=== PATIENT | male | born 1965 | race Caucasian/White ===

== ENCOUNTER 2017-06-29 05:55 | Day surgery (SDC) | payer OTHER ==
[2017-06-29] MEDS ORDERED: Ketamine HCl 50 MG/ML IJ ONE (05:56)
[2017-06-29] MEDS ORDERED: DIPRIVAN 200 MG/20 ML IV ONE (05:56)
[2017-06-29] MEDS ORDERED: Lactated Ringers 1,000 ML IV SCH (06:00)
--- NOTE | 2017-06-29 08:03 | OP ---
SURGERY DATE/TIME: 06/29/2017 0700 PREOPERATIVE DIAGNOSIS: Screening colonoscopy. POSTOPERATIVE DIAGNOSIS: Normal colon. PROCEDURE: Screening colonoscopy. SURGEON: Nicanor Galvan M.D. ANESTHESIA: MAC by Vinay Bowser CRNA. ESTIMATED BLOOD LOSS: None. SPECIMENS: None. DESCRIPTION OF PROCEDURE: After informed written consent was obtained, the patient was taken to the endoscopy suite. He underwent monitored anesthesia and a digital rectal exam showed normal sphincter tone and no internal lesions. The scope was inserted into the rectum and sequentially the entire colonic mucosa was traversed. The level of cecum was reached and verified with direct visualization of ileocecal valve. Upon withdrawal careful mucosal inspection revealed no gross abnormalities or lesions. Prior to withdrawal retroflexion was performed and was within normal limits. There was some fecal debris in the proximal colon but prep was noted to be fair throughout the length. Retroflexion showed no internal lesions and the scope was removed and the patient was transferred to the recovery room in excellent condition.
[2017-06-29 08:29] VITALS: BP 133/84; PULSE 72; O2SAT 100
== END 2017-06-29 08:25 | disposition home or self-care (01) ==
LOC: SDC 05:55
PROVIDERS: ATTEND Family Medicine
PROC: 0DJD8ZZ Inspection of Lower Intestinal Tract, Via Natural or Artificial Opening Endoscopic (ICD-10-PCS; principal; 2017-06-29)
DX: Z12.11 Encounter for screening for malignant neoplasm of colon (principal)
CPT/HCPCS: 00812; J2704

== ENCOUNTER 2020-11-26 15:22 | Day surgery (SDC) | payer OTHER ==
[2020-11-26] MEDS ORDERED: BUPIVACAINE 0.5% VIAL IJ ONE (15:23)
[2020-11-26] MEDS ORDERED: Xylocaine 1% Vial 30 ML PF IJ ONE (15:23)
[2020-11-26] MEDS ORDERED: Depo-Medrol 40 MG/ML IM ONE (15:23)
--- NOTE | 2020-11-27 11:35 | XRAY ---
10 seconds fluoroscopy time in surgery for intra-articular injection of the right knee.
--- NOTE | 2020-11-27 11:45 | XRAY ---
17 seconds fluoroscopy time in surgery for intra-articular injection of the left knee.
--- NOTE | 2020-11-30 18:08 | XRAY ---
Indication: Intra-articular right knee injection. Intraoperative fluoroscopy was provided for 10 seconds. A single digital spot image submitted for interpretation demonstrates a needle tip projected over the right femur intercondylar notch. A small amount of contrast has been injected for needle tip placement. Correlate with intraoperative findings/report.
--- NOTE | 2020-11-30 18:10 | XRAY ---
Indication: Intra-articular left knee joint injection. Intraoperative fluoroscopy was provided for 17 seconds. 2 digital spot images submitted for interpretation demonstrates a needle tip projected over the left femur intercondylar notch. Some contrast has been injected for needle tip placement. Correlate with intraoperative findings/report.
== END 2020-11-26 17:35 | disposition home or self-care (01) ==
LOC: SDC-PAIN 15:22
PROVIDERS: ATTEND Psychiatry & Neurology Pain Medicine
DX: M17.0 Bilateral primary osteoarthritis of knee (principal); J45.909 Unspecified asthma, uncomplicated; K21.9 Gastro-esophageal reflux disease without esophagitis; Z79.899 Other long term (current) drug therapy
CPT/HCPCS: 20610; 73560; 77002; J1030; J2001; Q9966

== ENCOUNTER 2021-07-08 10:04 | Day surgery (SDC) | payer OTHER ==
[2021-07-08] MEDS ORDERED: Xylocaine 1% Vial 30 ML PF IJ ONE (10:05)
[2021-07-08] MEDS ORDERED: BUPIVACAINE 0.5% VIAL IJ ONE (10:05)
[2021-07-08] MEDS ORDERED: Depo-Medrol 40 MG/ML IM ONE (10:05)
--- NOTE | 2021-07-08 13:57 | XRAY ---
Indication: Left knee injection. Intraoperative fluoroscopy provided for 8 seconds. Single digital spot image submitted for interpretation demonstrates needle tip projecting over the left femur intercondylar notch. Small amount of contrast injected for needle tip placement. Correlate with intraoperative findings/report.
--- NOTE | 2021-07-08 13:57 | XRAY ---
Indication: Right knee injection. Intraoperative fluoroscopy provided for 9 seconds. Single digital spot image submitted for interpretation demonstrates needle tip projecting over the right femur intercondylar notch. Small amount of contrast injected for needle tip placement. Correlate with intraoperative findings/report.
--- NOTE | 2021-07-08 13:59 | XRAY ---
8 seconds fluoroscopy time in surgery for injection of the intra-articular joint space of the left knee.
--- NOTE | 2021-07-08 14:09 | XRAY ---
9 seconds fluoroscopy time in surgery for injection of the intra-articular joint space of the right knee.
== END 2021-07-08 13:20 | disposition home or self-care (01) ==
LOC: SDC-PAIN 10:04
PROVIDERS: ATTEND Psychiatry & Neurology Pain Medicine
DX: M17.0 Bilateral primary osteoarthritis of knee (principal); Z79.899 Other long term (current) drug therapy
CPT/HCPCS: 20610; 73560; 77002; J1030; J2001; Q9966

== ENCOUNTER 2022-06-16 15:46 | Day surgery (SDC) | payer OTHER ==
[2022-06-16] MEDS ORDERED: Depo-Medrol 40 MG/ML IM ONE (15:47)
[2022-06-16] MEDS ORDERED: LIDOCAINE HCL 1% 50 MG/5 ML VL PF IJ ONE (15:47)
[2022-06-16] MEDS ORDERED: BUPIVACAINE 0.5% VIAL IJ ONE (15:47)
--- NOTE | 2022-06-16 19:27 | XRAY ---
Indication: Right knee injection. Intraoperative fluoroscopy provided for 10 seconds. Single digital spot image submitted for interpretation demonstrates needle tip projecting over the right femur intercondylar notch. Small amount of contrast injected for needle tip placement. Correlate with intraoperative findings/report.
--- NOTE | 2022-06-17 08:33 | XRAY ---
10 seconds of fluoroscopy was used in surgery for a right intra-articular knee injection.
== END 2022-06-16 18:45 | disposition home or self-care (01) ==
LOC: SDC-PAIN 15:46
PROVIDERS: ATTEND Psychiatry & Neurology Pain Medicine
DX: M17.11 Unilateral primary osteoarthritis, right knee (principal); Z79.899 Other long term (current) drug therapy
CPT/HCPCS: 20610; 73560; 77002; J1030; J2001; Q9966

== ENCOUNTER 2024-01-13 10:27 | Emergency (ER) | payer OTHER ==
--- NOTE | 2024-01-13 10:33 | ERPHSYRPT ---
- History of Present Illness Time Seen by Provider: 01/13/24 10:33 Source: patient Exam Limitations: clinical condition Physician History: This is a 58-year-old white male patient who arrives by private vehicle and is a patient of nurse practitioner Howie. He presents because of concern that he has had dizziness, loss of balance, visual changes and forgetfulness/memory loss over the last week. Patient does see pain specialist Dr. Will. He has some issues with the left upper extremity shoulder muscles/tendons. Patient denies any head injury. He is not on any anticoagulation therapy. Patient has a history of gastroesophageal reflux disease, asthma and arthritis. He denies chest pain. He denies shortness of breath. He denies abdominal pain Timing/Duration: week(s) (1), worse Severity: mild (Moderate) Character of Deficits: vision problems, other (Balance issues, memory loss) Baseline/Normal Cognition: alert oriented x 3 Current Cognition: alert oriented x 3 Baseline Gait: walks w/o assistance Associated Symptoms: confusion (Minimally), vision changes (Minimally), other (Intermittent decreased balance) Allergies/Adverse Reactions: No Known Drug Allergies Allergy (Verified 01/13/24 11:25) Home Medications: Omeprazole 20 MG [Prilosec 20 mg] 20 mg PO DAILY 06/10/17 [History] Oxycodone HCl/Acetaminophen [Oxycodone-Acetaminophen 5-325] 1 tab PO TID 01/13/24 [History] Travel Risk - International Travel Have you traveled outside of the country in past 3 weeks: No - Emerging Infectious Disease Are you exhibiting symptoms associated with any current EIDs: No - Review of Systems Constitutional: No Symptoms Eyes: No Symptoms Ears, Nose, & Throat: No Symptoms Respiratory: No Symptoms Cardiac: No Symptoms Abdominal/Gastrointestinal: No Symptoms Genitourinary Symptoms: No Symptoms Musculoskeletal: No Symptoms Skin: No Symptoms Neurological: No Symptoms Psychological: No Symptoms Endocrine: No Symptoms Hematologic/Lymphatic: No Symptoms Immunological/Allergic: No Symptoms All Other Systems: Reviewed and Negative - Past Medical History Pertinent Past Medical History: Yes Neurological History: No Pertinent History ENT History: No Pertinent History Cardiac History: No Pertinent History Respiratory History: Asthma Endocrine Medical History: No Pertinent History Musculoskeletal History: Other GI Medical History: GERD History: No Pertinent History Psycho-Social History: No Pertinent History Male Reproductive Disorders: No Pertinent History Other Medical History: B torn meniscus, L rotator cuff tear (non-surgical), R middle finger distal phalanx severed and surgically repaired - Past Surgical History Past Surgical History: No Neuro Surgical History: No Pertinent History Cardiac: No Pertinent History Respiratory: No Pertinent History Gastrointestinal: No Pertinent History Genitourinary: No Pertinent History Musculoskeletal: No Pertinent History Male Surgical History: No Pertinent History - Social History Smoking Status: Never smoker Exposure to second hand smoke: No Drug Use: none - Nursing Vital Signs Nursing Vital Signs: Initial Vital Signs Temperature 98.4 F 01/13/24 11:25 Pulse Rate 63 01/13/24 11:25 Respiratory Rate 18 01/13/24 11:25 Blood Pressure 187/96 01/13/24 11:25 O2 Sat by Pulse Oximetry 99 01/13/24 11:25 Pain Scale Pain Intensity 0 - [place] Coma Scale Best Eye Response ([place]): (4) open spontaneously Best Verbal Response ([place]): (5) oriented Best Motor Response ([place]): (6) obeys commands [place] Total: 15 - Physical Exam General Appearance: no apparent distress, alert, anxiety Eye Exam: bilateral eye: normal inspection, PERRL, EOMI Ears, Nose, Throat Exam: normal ENT inspection, TMs normal, pharynx normal Neck Exam: normal inspection, non-tender, supple, full range of motion Respiratory: normal breath sounds, lungs clear, airway intact, No chest tendern ess, No respiratory distress Cardiovascular: regular rate/rhythm, normal heart sounds, normal peripheral pulses Gastrointestinal: soft, normal bowel sounds, No tenderness Rectal Exam: not done Back Exam: normal inspection, normal range of motion, No CVA tenderness, No vertebral tenderness Extremity Exam: normal inspection, normal range of motion, pelvis stable Mental Status: alert, oriented x 3, 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 Exam: normal hearing, normal speech, PERRL, tongue midline Coordination/Gait: normal finger to nose, normal gait Motor/Sensory: no motor deficit, no sensory deficit Skin Exam: normal color, warm, dry SpO2 Interpretation: normal O2 Delivery: Room Air - Course Nursing assessment & vital signs reviewed: Yes Ordered Tests: Active Orders 24 hr Category Date Time Status Powerhouse Attendant STAT Care 01/13/24 12:15 Active Clean Catch Urine Specimen STAT Care 01/13/24 12:15 Active EKG-ER Only STAT Care 01/13/24 12:15 Active IV Insertion STAT Care 01/13/24 12:15 Active Tele-Health Consult ROUTINE Cons 01/13/24 15:[address] ANGIOGRAPHY NECK [CT] Stat Exams 01/13/24 12:17 Completed CTA HEAD W AND/OR WO CONTRAST [CT] Stat Exams 01/13/24 12:17 Completed CBC W DIFF Stat Lab 01/13/24 12:25 Completed CMP Stat Lab 01/13/24 12:25 Completed ETHYL ALCOHOL Stat Lab 01/13/24 12:25 Completed MAGNESIUM Stat Lab 01/13/24 12:25 Completed UA W/RFX UR CULTURE Stat Lab 01/13/24 12:28 Completed Urine Triage Profile Stat Lab 01/13/24 12:28 Results Medication Summary Generic Name Dose Route Start Last Admin Trade Name Freq PRN Reason Stop Dose Admin Sodium Chloride 1,000 mls @ 100 mls/hr 01/13/24 12:15 01/13/24 12:31 Sodium Chloride 0.9% 1000 Ml IV 02/12/24 12:14 100 mls/hr .Q10H ALIDA Administration Discontinued Medications Generic Name Dose Route Start Last Admin Trade Name Freq PRN Reason Stop Dose Admin Potassium Chloride 40 meq 01/13/24 13:01 01/13/24 13:06 Potassium Chloride Tab 10 Meq Tab PO 01/13/24 13:02 40 meq STAT ONE Administration Potassium Chloride Confirm 01/13/24 13:04 Potassium Chloride Tab 10 Meq Tab Administered 01/13/24 13:05 Dose 40 meq .ROUTE .STK-MED ONE Lab/Rad Data: Laboratory Result Diagrams 01/13/24 12:25 01/13/24 12:25 Laboratory Results 01/13/24 01/13/24 01/13/24 Range/Units 12:28 12:28 12:25 WBC (4.23-9.07) x10^3/uL RBC (4.63-6.08) x10^6/uL Hgb (13.7-17.5) g/dL Hct (40.1-51.0) % MCV (79.0-92.2) fL MCH (25.7-32.2) pg MCHC (32.3-36.5) g/dL RDW (11.6-14.4) % Plt Count (163-337) x10^3/uL MPV (9.4-12.4) fL Gran % (34.0-67.9) % Immature Gran % (Auto) (0.001-0.429) % Nucleat RBC Rel Count (0.00-0.2) % Eos # (Auto) (0.04-0.54) x10^3/uL Immature Gran # (Auto) (0.001-0.031) x10^3u/L Absolute Lymphs (auto) (1.32-3.57) x10^3/uL Absolute Monos (auto) (0.30-0.82) x10^3/uL Absolute Nucleated RBC (0.00-0.012) x10^3u/L Lymphocytes % (21.8-53.1) % Monocytes % (5.3-12.2) % Eosinophils % (0.8-7.0) % Basophils % (0.2-1.2) % Absolute Granulocytes (1.78-5.38) x10^3/uL Basophils # (0.01-0.08) x10^3/uL Sodium 139 (135-145) mmol/L Potassium 3.0 L* (3.5-5.1) mmol/L Chloride 103 (98-107) mmol/L Carbon Dioxide 31 H (22-30) mmol/L Anion Gap 9.0 (5-15) MEQ/L BUN 10 (9-20) mg/dL Creatinine 0.97 (0.66-1.25) mg/dL Estimated GFR 91.1 ML/MIN Glucose 100 (74-106) mg/dL Calcium 9.7 (8.4-10.2) mg/dL Magnesium 2.0 (1.6-2.3) mg/dL Total Bilirubin 0.30 (0.2-1.3) mg/dL AST 24 (17-59) U/L ALT 16 (0-50) U/L Alkaline Phosphatase 53 (38-126) U/L Serum Total Protein 7.0 (6.3-8.2) g/dL Albumin 4.2 (3.5-5.0) g/dL Urine Color Yellow (Yellow) Urine Appearance Clear (Clear) Urine pH 7.0 (4.6-8.0) Ur Specific [place] <=1.005 (1.005-1.030) Urine Protein Negative (Negative) Urine Glucose (UA) Negative (Negative) mg/dL Urine Ketones Negative (Negative) Urine Blood Negative (Negative) Urine Nitrite Negative (Negative) Urine Bilirubin Negative (Negative) Urine Urobilinogen 0.2 (0.2) mg/dL Ur Leukocyte Esterase Negative (Negative) U Hyaline Cast (Auto) NONE SEEN (0-2) /LPF Urine Microscopic RBC 0-2 (0-5) /HPF Urine Microscopic WBC 0-2 (0-5) /HPF Ur Epithelial Cells None Seen (None Seen) /HPF Urine Bacteria None Seen (None Seen) /HPF Urine Culture Reflexed NO (NO) Urine Opiates Level NEGATIVE (NEGATIVE) Ur Methadone NEGATIVE (NEGATIVE) Urine Barbiturates NEGATIVE (NEGATIVE) Ur Phencyclidine (PCP) NEGATIVE (NEGATIVE) Urine Amphetamine NEGATIVE (NEGATIVE) U Benzodiazepine Level Pending Urine Cocaine NEGATIVE (NEGATIVE) Urine Marijuana (THC) NEGATIVE (NEGATIVE) Ethyl Alcohol < 10 (0-10) mg/dL 01/13/24 Range/Units 12:25 WBC 6.0 (4.23-9.07) x10^3/uL RBC 4.36 L (4.63-6.08) x10^6/uL Hgb 13.1 L (13.7-17.5) g/dL Hct 37.5 L (40.1-51.0) % MCV 86.0 (79.0-92.2) fL MCH 30.0 (25.7-32.2) pg MCHC 34.9 (32.3-36.5) g/dL RDW 12.5 (11.6-14.4) % Plt Count 297 (163-337) x10^3/uL MPV 10.2 (9.4-12.4) fL Gran % 56.3 (34.0-67.9) % Immature Gran % (Auto) 0.3 (0.001-0.429) % Nucleat RBC Rel Count 0.0 (0.00-0.2) % Eos # (Auto) 0.26 (0.04-0.54) x10^3/uL Immature Gran # (Auto) 0.02 (0.001-0.031) x10^3u/L Absolute Lymphs (auto) 1.76 (1.32-3.57) x10^3/uL Absolute Monos (auto) 0.56 (0.30-0.82) x10^3/uL Absolute Nucleated RBC 0.00 (0.00-0.012) x10^3u/L Lymphocytes % 29.4 (21.8-53.1) % Monocytes % 9.4 (5.3-12.2) % Eosinophils % 4.3 (0.8-7.0) % Basophils % 0.3 (0.2-1.2) % Absolute Granulocytes 3.36 (1.78-5.38) x10^3/uL Basophils # 0.02 (0.01-0.08) x10^3/uL Sodium (135-145) mmol/L Potassium (3.5-5.1) mmol/L Chloride (98-107) mmol/L Carbon Dioxide (22-30) mmol/L Anion Gap (5-15) MEQ/L BUN (9-20) mg/dL Creatinine (0.66-1.25) mg/dL Estimated GFR ML/MIN Glucose (74-106) mg/dL Calcium (8.4-10.2) mg/dL Magnesium (1.6-2.3) mg/dL Total Bilirubin (0.2-1.3) mg/dL AST (17-59) U/L ALT (0-50) U/L Alkaline Phosphatase (38-126) U/L Serum Total Protein (6.3-8.2) g/dL Albumin (3.5-5.0) g/dL Urine Color (Yellow) Urine Appearance (Clear) Urine pH (4.6-8.0) Ur Specific [place] (1.005-1.030) Urine Protein (Negative) Urine Glucose (UA) (Negative) mg/dL Urine Ketones (Negative) Urine Blood (Negative) Urine Nitrite (Negative) Urine Bilirubin (Negative) Urine Urobilinogen (0.2) mg/dL Ur Leukocyte Esterase (Negative) U Hyaline Cast (Auto) (0-2) /LPF Urine Microscopic RBC (0-5) /HPF Urine Microscopic WBC (0-5) /HPF Ur Epithelial Cells (None Seen) /HPF Urine Bacteria (None Seen) /HPF Urine Culture Reflexed (NO) Urine Opiates Level (NEGATIVE) Ur Methadone (NEGATIVE) Urine Barbiturates (NEGATIVE) Ur Phencyclidine (PCP) (NEGATIVE) Urine Amphetamine (NEGATIVE) U Benzodiazepine Level Urine Cocaine (NEGATIVE) Urine Marijuana (THC) (NEGATIVE) Ethyl Alcohol (0-10) mg/dL - Progress Progress: unchanged, re-examined Progress Note: 01/13/24 12:25 My medical decision making and the assignment of moderate complexity to this patient's medical issue today is based on review of the patient's past medical history, review of patient's medication list, review of patient drug allergy list, history present illness and physical findings on examination. The workup in this patient includes intravenous line placement, twelve-lead EKG, magnesium level, ethyl alcohol level, urinalysis, urine drug screen, CBC, CMP, CT scan with contrast of the neck and head. Likely, we will need to obtain a teleneurology consultation. Differential diagnosis includes but is not limited to anxiety about health, acute intracranial abnormality, acute cranial vascular abnormality, electrolyte abnormalities, arrhythmias, urinary tract infection 01/13/24 15:11 Interpreted the patient's laboratory data results. The patient's potassium is low but not of an emergent level. We did provide him with oral potassium 40 mEq. The remainder of his laboratory data results are nonemergent and nonacute. CT scan of the head with and without contrast was interpreted by the radiologist and is normal. The CTA of the head was interpreted by the radiologist and is normal. The CTA angiography of the neck was interpreted by the radiologist and I reviewed the impression. The impression states normal CTA of the neck with contrast. There is evidence of C3-C7 degenerative spondylosis. We have placed a call into teleneurology for evaluation and recommendations for management. 01/13/24 15:43 The nurse Chaya reported to me, and the patient confirmed that the teleneurologist recommends that patient have an outpatient MRI of the brain and an EEG ordered. The patient states that he will go to the [facility] on 01/16/2024, at his place of work to have these test ordered. Counseled pt/family regarding: lab results, diagnosis, rad results Medical Desision Making - Risk of complications Low Risk: Low risk of morbidity from additional dx testing or treatment - Departure Departure Disposition: Home Clinical Impression: Visual changes, Balance problem, Dizziness Condition: Stable Critical Care Time: No Referrals: SIDNEY MOLINA NP [Primary Care Provider] - Follow up/PCP as directed Additional Instructions: Per the neurologist, follow-up with your outpatient clinic on 01/16/2024, to make arranges for outpatient MRI of the brain and an EEG. Take all your other medications as prescribed.
[2024-01-13 11:40] VITALS: TEMP 98.4
[2024-01-13 12:30] LABS: Absolute Neutrophil Ct (ANC) 3.36 x10^3/uL (1.78-5.38); BASOPHIL % 0.3 % (0.2-1.2); Basophil (Absolute #) 0.02 x10^3/uL (0.01-0.08); Eosinophil % 4.3 % (0.8-7.0); Eosinophil (Absolute #) 0.26 x10^3/uL (0.04-0.54); Hematocrit 37.5 % (40.1-51.0); Hemoglobin 13.1 g/dL (13.7-17.5); IMMATURE GRAN # 0.02 x10^3u/L (0.001-0.031); IMMATURE GRAN % 0.3 % (0.001-0.429); Lymphocyte (Absolute #) 1.76 x10^3/uL (1.32-3.57); Lymphocytes % 29.4 % (21.8-53.1); Mean Corpuscular Hgb Concent. 34.9 g/dL (32.3-36.5); Mean Platelet Volume 10.2 fL (9.4-12.4); Monocyte (Absolute #) 0.56 x10^3/uL (0.30-0.82); Monocytes % 9.4 % (5.3-12.2); Neutrophil % 56.3 % (34.0-67.9); Platelet Count 297 x10^3/uL (163-337); Red Blood Count 4.36 x10^6/uL (4.63-6.08); Red Cell Distribution Width 12.5 % (11.6-14.4)
[2024-01-13] MEDS ORDERED: Sodium Chloride 0.9% 1000 ML 1,000 ML ONE (12:30)
[2024-01-13] MEDS: Sodium Chloride 0.9% 1000 ML 1,000 ML IV SCH (12:31)
[2024-01-13 12:34] LABS: ADD URINE CULTURE? NO (NO); Appearance Clear (Clear); Bacteria None Seen /HPF (None Seen); Bilirubin Negative (Negative); Blood Negative (Negative); Epithelial Cells None Seen /HPF (None Seen); Glucose, Urine Negative (Negative); Hyaline Casts NONE SEEN /LPF (0-2); Ketones Negative (Negative); Leukocyte Esterase Negative (Negative); Nitrite Negative (Negative); Protein,Urine Dip Negative (Negative); RBC 0-2 /HPF (0-5); Specific Gravity <=1.005 (1.005-1.030); Urobilinogen 0.2 mg/dL (0.2); WBC 0-2 /HPF (0-5)
[2024-01-13 12:46] LABS: Amphetamine,Urine NEGATIVE (NEGATIVE); Barbiturate,Urine NEGATIVE (NEGATIVE); Cocaine,Urine NEGATIVE (NEGATIVE); Methadone,Urine NEGATIVE (NEGATIVE); Opiate,Urine NEGATIVE (NEGATIVE); PCP,Urine NEGATIVE (NEGATIVE); THC,Urine NEGATIVE (NEGATIVE)
[2024-01-13 12:52] LABS: ALBUMIN 4.2 g/dL (3.5-5.0); ALKALINE PHOSPHATASE 53 U/L (38-126); BLOOD UREA NITROGEN 10 mg/dL (9-20); CHLORIDE 103 mmol/L (98-107); Calcium 9.7 mg/dL (8.4-10.2); Carbon Dioxide 31 mmol/L (22-30); Creatinine 1 0.97 mg/dL (0.66-1.25); EST GLOMERULAR FILTRATION RATE 91.1 ML/MIN; ETHYL ALCOHOL < 10 mg/dL (0-10); Glucose 100 mg/dL (74-106); SGOT/AST 24 U/L (17-59); SGPT/ALT 16 U/L (0-50); SODIUM 139 mmol/L (135-145)
[2024-01-13] MEDS ORDERED: Klor Con ONE (13:04)
[2024-01-13] MEDS: Klor Con PO ONE (13:06)
--- NOTE | 2024-01-13 14:35 | XRAY ---
Indication: Loss of balance. Visual changes. Confusion one week. Conventional contrast enhanced CTA neck performed using 80 cc Isovue 370 contrast. 2-D sagittal and coronal reformatted images obtained. Additional 3-D reformatted images obtained using a separate workstation. Comparison: None Normal appearing aortic arch with normal widely patent branching right brachiocephalic, left common carotid, and left subclavian arteries. Normal CTA appearance to the common carotid, carotid bulb, internal carotid, and internal carotid arteries bilaterally. Normal CTA appearance to the vertebral arteries with the left slightly larger than caliber. Visualized soft tissues demonstrates a few subcentimeter cervical and submandibular lymph nodes bilaterally. No pathologic lymphadenopathy. Parotid/submandibular glands bilaterally symmetric. Thyroid gland enhances homogeneously. Supra-and infraglottic airway are widely patent. Normal epiglottis. Lung apices clear. Visualized osseous structures intact with minimal/mild C3-C7 degenerative changes greatest at C5-C6. Patient is edentulous. Impression: 1. Normal CTA neck with contrast exam. 2. Incidental C3-C7 degenerative spondylosis.
--- NOTE | 2024-01-13 14:39 | XRAY ---
Indication: Loss of balance. Visual changes. Confusion one week. Initial CT head performed without contrast. Then conventional contrast enhanced CTA head performed using 80 cc Isovue 370 contrast. 2-D sagittal and coronal reformatted images obtained. Additional 3-D reformatted images obtained using a separate workstation. Comparison: None CT head without contrast demonstrating is normal appearing brain parenchyma, ventricles, and bony calvarium. 2 cm right maxillary sinus polyp/retention cyst. Remaining visualized paranasal sinuses and mastoid air cells are clear. CTA head demonstrates distal internal carotid arteries bilaterally symmetric without critical stenosis, obstruction, or AV malformation. Normal carotid terminus with normal branching A1 and M1 segments bilaterally. More distal anterior cerebral and middle cerebral arteries are normal in CTA appearance bilaterally. Normal CTA appearance and due to medicating and posterior communicating arteries. Posterior circulation demonstrates normal CTA appearance to basilar, left/right posterior cerebral, left/right superior cerebellar, and left/right anterior inferior cerebellar arteries. Venous sinuses/drainage unremarkable. No abnormal enhancing intra or extra-axial brain mass. Impression: 1. Normal CT head without contrast exam. Incidental right maxillary sinus polyp/retention cyst. 2. Normal CTA head with contrast exam.
[2024-01-13 14:53] VITALS: RESP 15
[2024-01-13 15:53] VITALS: BP 155/104; PULSE 77; O2SAT 98
[2024-01-17 20:12] LABS: Benzodiazepines Negative ng/mL (Cutoff=300)
== END 2024-01-13 15:55 | disposition home or self-care (01) ==
LOC: ED 10:27
DX: R42 Dizziness and giddiness (principal); H53.9 Unspecified visual disturbance; R26.81 Unsteadiness on feet; Z79.891 Long term (current) use of opiate analgesic; Z79.899 Other long term (current) drug therapy
CPT/HCPCS: 36000; 36415; 70496; 70498; 80053; 80307; 81001; 82077; 83735; 85025; 93005; 93041; 99284; A9270-GY

== ENCOUNTER 2024-03-16 06:18 | Day surgery (SDC) | payer OTHER ==
[~2024-03-16 06:18] MED LIST: CEFAZOLIN 2 GM/100 ML NaCl 2 GM/100 ML IVPB IV ONE; Decadron 4 MG ONE; Lactated Ringers 1,000 ML IV ONE; NEURONTIN ONE; TYLENOL EXTRA STRENGTH 500 MG ONE; celeBREX 100 MG ONE
[2024-03-16] MEDS: TYLENOL EXTRA STRENGTH 500 MG PO ONE (06:29)
[2024-03-16] MEDS: CEFAZOLIN 2 GM/100 ML NaCl 2 GM/100 ML IVPB IV SCH (06:29)
[2024-03-16] MEDS: Decadron 4 MG PO ONE (06:29)
[2024-03-16] MEDS: celeBREX 100 MG PO ONE (06:29)
[2024-03-16] MEDS: Lactated Ringers 1,000 ML IV SCH (06:29)
[2024-03-16] MEDS: NEURONTIN PO ONE (06:30)
[2024-03-16 06:50] VITALS: RESP 16
[2024-03-16] MEDS ORDERED: Lactated Ringers 1,000 ML IV ONE (07:16)
[2024-03-16] MEDS ORDERED: MARCAINE 0.25% PF/ EPI 1:200,000 ONE ×2 (07:16→07:17)
[2024-03-16] MEDS ORDERED: Epinephrine Preservative Free 1 MG/ML ONE ×4 (07:16→09:43)
[2024-03-16] MEDS ORDERED: TORAdol 30 mg Injection ONE (07:34)
[2024-03-16] MEDS ORDERED: BRIDION 200MG/2ML IV ONE (07:34)
[2024-03-16] MEDS ORDERED: Decadron 4 MG INJ ONE (07:34)
[2024-03-16] MEDS ORDERED: Xylocaine-Mpf 2% 5 Ml Vial ONE (07:34)
[2024-03-16] MEDS ORDERED: DIPRIVAN 200 MG/20 ML IV ONE (07:34)
[2024-03-16] MEDS ORDERED: Zofran 4 MG/2 ML VIAL ONE (07:34)
[2024-03-16] MEDS ORDERED: Versed 2 MG/2 ML Injection ONE (07:34)
[2024-03-16] MEDS ORDERED: SUBLIMAZE 100 MCG/2 ML ONE (07:34)
[2024-03-16] MEDS ORDERED: ROCURONIUM BROMIDE IV ONE (07:34)
[2024-03-16] MEDS ORDERED: EXPAREL 133 MG/10 ML VIAL IJ ONE (07:36)
[2024-03-16] MEDS ORDERED: Marcaine 0.5%/Epinephrine 10 ML ONE (07:36)
[2024-03-16] MEDS ORDERED: PHENYLEPHRINE HCL ONE (08:31)
[2024-03-16] MEDS ORDERED: Ephedrine Sulfate 50 MG/ML ONE (08:31)
[2024-03-16 11:15] VITALS: BP 125/82; PULSE 94; TEMP 96.8; O2SAT 94
--- NOTE | 2024-03-16 17:42 | OP ---
SURGERY DATE/TIME: 03/16/2024 [id number] PREOPERATIVE DIAGNOSIS: Torn left rotator cuff with impingement syndrome and acromioclavicular osteoarthritis. POSTOPERATIVE DIAGNOSIS: Torn left rotator cuff with impingement syndrome and acromioclavicular osteoarthritis. PROCEDURE: Arthroscopy of the left shoulder with rotator cuff repair utilizing a inverted mattress suture and a 4.5 SwiveLock anchor, subacromial decompression, and Abundio procedure. SURGEON: Robin Raza II, DO ANESTHESIA: General, with a block for postop pain control. DESCRIPTION OF PROCEDURE AND FINDINGS: The patient was identified and informed consent was obtained. The patient was taken to operative suite and placed in supine position on the operating table after the block had been administered in the preop holding area. Once an appropriate level of anesthesia had been obtained, the patient was then placed into the right lateral decubitus position with the left side up. The shoulders were rotated back 20 degrees after an axillary roll had been placed. Bony prominences were then padded. Beanbag was then inflated. At this point, the left upper extremity was prepped and draped in the usual sterile fashion. A standard time-out was taken. Following this, the shoulder was marked for bony landmarks and a standard posterior portal was created with an 11 blade. Trocar and cannula were placed in the joint, and the joint was distended with the arthroscopic pump. An anterior portal was created with an 11 blade after identifying the level with an 18-gauge spinal needle. At this point then, the glenohumeral joint was inspected in a systematic function. The glenoid fossa and humeral head were noted to be intact without evidence of degenerative changes. The labrum had some very minimal degenerative fraying which was incidentally shaved. There was no evidence of detachment anteriorly, superiorly, or posteriorly. The patient's glenohumeral ligaments were noted to be intact. The inferior glenoid pouch showed no evidence of loose bodies or significant hypertrophy. The biceps tendon was somewhat thinned and degenerative. At this point, it was debrided, and upon debridement, there was more tendinopathy and a tenotomy was performed. At this point then, the rotator cuff was debrided on the articular side where the articular tear was noted. An 18-gauge needle was placed through the rent in the rotator cuff so that this could be identified from the bursal side as well. The scope was then placed into the bursa, where bursoscopy was performed. A portion of the bursa was excised for visualization. The rotator cuff tear was easily identified on the bursal side and further cleaned up and the bony bed prepared. At this point, the undersurface of the acromion was denuded of soft tissue and about 2 bur thicknesses of acromion was removed anteriorly, and this was tapered to a smooth transition posteriorly. Attention was now turned to the acromioclavicular joint, where the hypertrophied acromioclavicular joint was encountered. The distal clavicle was resected with the bur, removing about 2.5 bur thicknesses of clavicle. At this point, the attention was turned back to the rotator cuff where an inverted mattress suture was utilized to repair the rotator cuff to its bed, as this was a very small tear. Excellent repair was noted, and at this point, the shoulder was reinspected and copiously irrigated and no further pathology identified. The instrumentation was removed, and the portal sites were closed with interrupted 4-0 nylon suture. Adaptics, 4 x 4's, and a sterile dressing applied. Patient was placed into an UltraSling, transferred to the cart, and taken to the recovery room in satisfactory condition, having tolerated the procedure well.
== END 2024-03-16 11:25 | disposition home or self-care (01) ==
LOC: SDC 06:18
PROVIDERS: ATTEND Orthopaedic Surgery
DX: M75.122 Complete rotator cuff tear or rupture of left shoulder, not specified as traumatic (principal); M75.42 Impingement syndrome of left shoulder; M19.012 Primary osteoarthritis, left shoulder
CPT/HCPCS: 27447; 76937; C1713; J0171; J0690; J1100; J1885; J2250; J2371; J2405; J2704; J3010; A9270-GY

== ENCOUNTER 2024-07-04 07:09 | Day surgery (SDC) | payer OTHER ==
[2024-07-04] MEDS ORDERED: Lactated Ringers 1,000 ML IV ONE ×2 (07:17→07:19)
[2024-07-04] MEDS ORDERED: CEFAZOLIN 2 GM/100 ML NaCl 2 GM/100 ML IVPB IV ONE (07:17)
[2024-07-04] MEDS ORDERED: MARCAINE 0.5%-EPI 1:200,000 VL IJ ONE (07:19)
[2024-07-04 07:32] VITALS: RESP 18; TEMP 97.8; O2SAT 98
[2024-07-04] MEDS: CEFAZOLIN 2 GM/100 ML NaCl 2 GM/100 ML IVPB IV SCH (07:37)
[2024-07-04] MEDS: Lactated Ringers 1,000 ML IV SCH (07:37)
[2024-07-04] MEDS ORDERED: propofoL IV ONE (07:46)
[2024-07-04] MEDS ORDERED: dexAMETHasone sodium phosphate ONE (07:47)
[2024-07-04] MEDS ORDERED: Zofran 4 MG/2 ML VIAL ONE (07:47)
[2024-07-04] MEDS ORDERED: Xylocaine-Mpf 2% 5 Ml Vial ONE (07:47)
[2024-07-04] MEDS ORDERED: SUBLIMAZE 100 MCG/2 ML ONE (07:48)
[2024-07-04 09:56] VITALS: BP 145/87; PULSE 81
--- NOTE | 2024-07-05 12:13 | OP ---
SURGERY DATE/TIME: 07/04/2024 [id number] PREOPERATIVE DIAGNOSIS: Torn right medial meniscus. POSTOPERATIVE DIAGNOSIS: Torn right medial meniscus, small fraying tear lateral meniscus, small medial plica, mild chondromalacia medial femoral condyle. PROCEDURE: Arthroscopy of the right knee with partial medial meniscectomy, partial lateral meniscectomy, excision medial plica, and limited chondroplasty medial femoral condyle. SURGEON: Robin Raza DO ANESTHESIA: General. DESCRIPTION OF PROCEDURE AND FINDINGS: The patient was identified and informed consent was obtained. The patient was taken to the operative suite and placed in supine position on the operating table. General anesthetic was administered, and once an appropriate level of anesthesia had been obtained, a tourniquet was placed high on the right thigh, the right lower extremity was placed in knee charles. The leg was then prepped and draped in the usual sterile fashion. A standard time-out was taken. At this point, the leg was exsanguinated and the tourniquet was elevated to 350 mmHg. A standard superomedial portal was created with an 11-blade, and trocar and cannula were placed in the joint. The joint was distended with the arthroscopic pump. An inferolateral portal was created with an 11-blade and the arthroscope was then placed in through our cannula. An 18-gauge spinal needle then identified the level for the inferomedial portal which was also created with an 11-blade. The knee was inspected in a systematic fashion beginning in the suprapatellar pouch where there were no loose bodies. There was noted to be a small medial plica which was shaved and excised with the shaver. Undersurface of the patella and the trochlear groove had no chondromalacia, and the patella seated nicely within the femoral groove at about 30 degrees of flexion. The scope was placed into the medial compartment where a complex tear involving the posterior horn of the medial meniscus was encountered. This was then resected with the handheld biting instruments and shaved to a smooth transition with the shaver. The scope was placed into the intercondylar notch region where the anterior cruciate ligament was inspected and noted to be intact, having no evidence of attenuation or tears. The scope was then placed into the lateral compartment where the lateral meniscus was probed throughout its entirety. The anterior and posterior horns had no fraying. There was a small fraying tear noted along the inner edge of the middle horn and this was resected with the handheld biting instruments and shaved to a smooth transition with the shaver. Femoral condyles and tibial plateau on the lateral side had no chondromalacia or degenerative changes. A limited chondroplasty was performed on the medial femoral condyle as this had a small area of chondromalacia where the patient had been ambulating on this tear for a while. At this point, the knee was copiously irrigated and reinspected. No further pathology was identified. The instrumentation was removed and the portal sites were closed with interrupted 4-0 nylon suture. The knee was infiltrated with 30 mL of 0.25% Marcaine with epinephrine into the portal sites and joint. Adaptic, 4 x 4's, and a standard postop arthroscopy dressing applied. The patient was transferred to the cart and taken to the recovery room in satisfactory condition having tolerated the procedure well.
== END 2024-07-04 09:56 | disposition home or self-care (01) ==
LOC: SDC 07:09
PROVIDERS: ATTEND Orthopaedic Surgery
DX: S83.241A Other tear of medial meniscus, current injury, right knee, initial encounter (principal); M67.51 Plica syndrome, right knee; M94.261 Chondromalacia, right knee
CPT/HCPCS: J0690; J1100; J2405; J2704; J3010

== ENCOUNTER 2024-07-09 13:14 | Observation (INO) | payer OTHER ==
--- NOTE | 2024-07-09 13:19 | ERPHSYRPT ---
- History of Present Illness Time Seen by Provider: 07/09/24 13:18 Source: patient Exam Limitations: no limitations Physician History: This is a 58-year-old white male patient of nurse practitioner Howie who underwent a right knee arthroscopy on 07/04/2024 to remove debris that is present and walking up his knee. He had been doing fairly well after surgery until this morning when he started having significant pain first in his back then radiated anteriorly with pain in his lungs and associated shortness of breath. He arrives to the emergency department with a room air oxygen saturation level of 95% and a heart rate in the 120s and a normal sinus rhythm pattern on the monitor. He does not know if he received any anticoagulation therapy in the preop or IntraOp type. But he states he has not had any after surgery. Patient also arrives with a low-grade fever. Timing/Duration: today Severity of Dyspnea-Max: moderate Severity of Dyspnea-Current: moderate Possible Cause: no prior episodes Modifying Factors: Improves With: deep breath Associated Symptoms: chest pain/discomfort (Worsens pain), fever Allergies/Adverse Reactions: No Known Drug Allergies Allergy (Verified 07/09/24 13:16) Home Medications: Omeprazole 20 mg PO DAILY 03/16/24 [History] Oxycodone HCl/Acetaminophen [Percocet 7.5-325 mg Tablet] 1 each PO QID PRN PRN 06/14/24 [History] Albuterol Sulfate Mdi [ALBUTEROL/Proair Hfa MDI] 1 puff IH Q4-6HPRN PRN 07/09/24 [History] Fluticasone Propion/Salmeterol [Fluticasone-Salmeterol 250-50] 1 puff IH DAILY 07/09/24 [History] Hx Tetanus, Diphtheria Vaccination/Date Given: Yes Hx Influenza Vaccination/Date Given: No Hx Pneumococcal Vaccination/Date Given: No Travel Risk - International Travel Have you traveled outside of the country in past 3 weeks: No - Emerging Infectious Disease Are you exhibiting symptoms associated with any current EIDs: No Symptoms: Headaches/Body Aches/ - Review of Systems Constitutional: Fever Eyes: No Symptoms Ears, Nose, & Throat: No Symptoms Respiratory: Dyspnea Cardiac: Chest Pain Abdominal/Gastrointestinal: No Symptoms Genitourinary Symptoms: No Symptoms Musculoskeletal: No Symptoms Skin: No Symptoms Neurological: No Symptoms Psychological: No Symptoms Endocrine: No Symptoms Hematologic/Lymphatic: No Symptoms Immunological/Allergic: No Symptoms All Other Systems: Reviewed and Negative - Past Medical History Pertinent Past Medical History: Yes Neurological History: Migraines, Other ENT History: No Pertinent History Cardiac History: No Pertinent History Respiratory History: Asthma Endocrine Medical History: No Pertinent History Musculoskeletal History: Other GI Medical History: GERD History: No Pertinent History Psycho-Social History: No Pertinent History Male Reproductive Disorders: No Pertinent History Other Medical History: Vascular Migraines, bilat Rotator Cuff Repair, R Biceps Tenodesis, GERD - Past Surgical History Past Surgical History: Yes Neuro Surgical History: No Pertinent History Cardiac: No Pertinent History Respiratory: No Pertinent History Gastrointestinal: No Pertinent History Genitourinary: No Pertinent History Musculoskeletal: Orthopedic Surgery Male Surgical History: No Pertinent History Other Surgical History: bilat rotator cuff surgery - Social History Smoking Status: Former smoker Exposure to second hand smoke: No Drug Use: none - Social Determinants of Health Will the patient participate in the screening: Yes Do you worry about a steady place to live?: No In the past 12 months,have you had to go without utilities?: No Transportation Issues: No Has anyone in your support network made you feel unsafe?: No Have you or anyone in your house had to go without enough: No - Nursing Vital Signs Nursing Vital Signs: Initial Vital Signs Pulse Rate 133 H 07/09/24 13:17 Respiratory Rate 16 07/09/24 13:17 O2 Sat by Pulse Oximetry 98 07/09/24 13:17 Pain Scale Pain Intensity 0 - Physical Exam General Appearance: mild distress, alert, anxiety Eye Exam: PERRL/EOMI Ears, Nose, Throat Exam: hearing grossly normal, normal ENT inspection, normal pharynx Neck Exam: normal inspection, non-tender, supple, full range of motion Respiratory Exam: normal breath sounds, chest tenderness, lungs clear, respiratory distress, airway intact Cardiovascular/Chest Exam: normal heart sounds, tachycardia Abdominal/Gastrointestinal Exam: soft, normal bowel sounds, tenderness Rectal Exam: not done Extremity Exam: pelvis stable, swelling (Normal-appearing postoperative swelling right knee and distal) Neurologic Exam: alert, oriented x 3, cooperative, glassine machine tender II-XII nml as tested, sensation nml Skin Exam: normal color, warm, dry Lymphatic Exam: No adenopathy SpO2 Interpretation: normal O2 Delivery: Room Air - Course Nursing assessment & vital signs reviewed: Yes EKG Interpreted by Me: RATE (132), Sinus Tach, NORMAL AXIS, NORMAL INTERVALS, NORMAL QRS, Other Ordered Tests: Active Orders 24 hr Category Date Time Status Bedrest with BRP/BSC TOLERATED Activity 07/09/24 18:42 Completed Emt/Dispatcher STAT Care 07/09/24 13:22 Completed Code Status Order ROUTINE Care 07/09/24 18:42 Active EKG-ER Only STAT Care 07/09/24 13:21 Completed Elevate HOB TOLERATED Care 07/09/24 18:42 Completed IV Insertion STAT Care 07/09/24 13:[address] in Observation ROUTINE Care 07/09/24 18:42 Active Pulse Oximetry (ED) STAT Care 07/09/24 13:21 Completed CHEST WITH CONTRAST [CT] Stat Exams 07/09/24 14:12 Completed CHEST WITH CONTRAST [CT] Stat Exams 07/10/24 14:30 Ordered VENOUS UNILAT/LIMITED EXTREMIT [US] Stat Exams 07/09/24 14:12 Completed BLOOD CULTURE Stat Lab 07/09/24 13:48 Received CBC W DIFF Stat Lab 07/09/24 13:30 Completed CMP Stat Lab 07/09/24 13:30 Completed D-DIMER QUANTITATIVE Stat Lab 07/09/24 13:30 Completed Lactic Acid Stat Lab 07/09/24 13:21 Completed MAGNESIUM Stat Lab 07/09/24 13:30 Completed NT PRO BNPII Stat Lab 07/09/24 13:30 Completed TROPONIN Q4H Lab 07/09/24 13:30 Completed TROPONIN Q4H Lab 07/09/24 17:46 Completed Oxygen Nasal Cannula 2 lpm RT 07/09/24 18:42 Active Pulse Oximetry ROUTINE RT 07/09/24 18:42 Active Respiratory Therapy Consult ONCE RT 07/09/24 18:42 Active Transfer Order Routine Transfer 07/09/24 Completed Medication Summary Generic Name Dose Route Start Last Admin Trade Name Freq PRN Reason Stop Dose Admin Acetaminophen 650 mg 07/09/24 18:42 Acetaminophen 325 Mg Tablet PO 08/08/24 18:41 Q4H PRN PRN PAIN, FEVER, HEADACHE Enoxaparin Sodium 100 mg 07/10/24 06:00 Enoxaparin Sodium 120 Mg/0.8 Ml Syringe SQ 08/09/24 05:59 Q12HT ALIDA Hydromorphone HCl 0.5 mg 07/09/24 18:42 Hydromorphone 1 Mg/1ml Inj IV 07/14/24 18:41 Q4H PRN PRN PAIN Non-Formulary Medication 1 puff 07/09/24 20:47 Albuterol Sulfate Mdi IH 08/08/24 20:46 Q4H PRN PRN SHORTNESS OF BREATH Non-Formulary Medication 20 mg 07/10/24 10:00 Omeprazole [Omeprazole] PO 08/09/24 09:59 DAILY ALIDA Non-Formulary Medication 1 each 07/09/24 20:47 Oxycodone Hcl/Acetaminophen [Percocet 7.5-325 Mg Tablet] PO 08/08/24 20:46 Q6H PRN PRN MODERATE PAIN Ondansetron HCl 4 mg 07/09/24 18:42 Ondansetron Hcl 4 Mg/2 Ml Vial IV 08/08/24 18:41 Q6H PRN PRN NAUSEA/VOMITING Discontinued Medications Generic Name Dose Route Start Last Admin Trade Name Freq PRN Reason Stop Dose Admin Methylprednisolone Sodium 0 mg 07/09/24 16:22 07/09/24 16:30 Succinate 125 mg/ Sterile IV 07/09/24 16:23 125 mg Water 2 ml STAT ONE Administration Diphenhydramine HCl 50 mg 07/09/24 16:22 07/09/24 16:30 Diphenhydramine Hcl 50 Mg/Ml Vial IV 07/09/24 16:23 50 mg STAT ONE Administration Diphenhydramine HCl Confirm 07/09/24 16:29 Diphenhydramine Hcl 50 Mg/Ml Vial Administered 07/09/24 16:30 Dose 50 mg .ROUTE .STK-MED ONE Enoxaparin Sodium 100 mg 07/09/24 15:04 07/09/24 15:06 Enoxaparin Sodium 120 Mg/0.8 Ml Syringe SQ 07/09/24 15:05 100 mg STAT STA Administration Enoxaparin Sodium Confirm 07/09/24 15:05 Enoxaparin Sodium 120 Mg/0.8 Ml Syringe Administered 07/09/24 15:06 Dose 120 mg SQ .STK-MED ONE Enoxaparin Sodium 100 mg 07/09/24 22:00 Enoxaparin Sodium 120 Mg/0.8 Ml Syringe SQ 08/08/24 21:59 Q12HT ALIDA Hydromorphone HCl 1 mg 07/09/24 13:35 07/09/24 13:37 Hydromorphone 1 Mg/1ml Inj IV 07/09/24 13:36 1 mg STAT ONE Administration Hydromorphone HCl Confirm 07/09/24 13:36 Hydromorphone 1 Mg/1ml Inj Administered 07/09/24 13:37 Dose 1 mg .ROUTE .STK-MED ONE Sodium Chloride 1,000 mls @ 100 mls/hr 07/09/24 16:30 07/09/24 16:31 Sodium Chloride 0.9% 1000 Ml IV 08/08/24 16:29 100 mls/hr .Q10H ALIDA Administration Sodium Chloride Confirm 07/09/24 16:29 Sodium Chloride 0.9% 1000 Ml Administered 07/09/24 16:30 Dose 1,000 mls @ ud .ROUTE .STK-MED ONE Sodium Chloride 1,000 mls @ 50 mls/hr 07/09/24 18:42 07/09/24 20:53 Sodium Chloride 0.9% 1000 Ml IV 08/08/24 18:41 Not Given .Q20H ALIDA Methylprednisolone Sodium Succinate Confirm 07/09/24 16:29 Methylprednis Sod Succ 125 Mg/2 Ml Vial Administered 07/09/24 16:30 Dose 125 mg .ROUTE .STK-MED ONE Ondansetron HCl 4 mg 07/09/24 13:35 07/09/24 13:37 Ondansetron Hcl 4 Mg/2 Ml Vial IV 07/09/24 13:36 4 mg STAT ONE Administration Ondansetron HCl Confirm 07/09/24 13:36 Ondansetron Hcl 4 Mg/2 Ml Vial Administered 07/09/24 13:37 Dose 4 mg .ROUTE .STK-MED ONE Sterile Water Confirm 07/09/24 16:28 Water For Injection,Sterile 10 Ml Vial Administered 07/09/24 16:29 Dose 10 ml IJ .STK-MED ONE Lab/Rad Data: Laboratory Result Diagrams 07/09/24 13:30 07/09/24 13:30 Laboratory Results 07/09/24 07/09/24 07/09/24 Range/Units 17:46 13:44 13:30 WBC (4.23-9.07) x10^3/uL RBC (4.63-6.08) x10^6/uL Hgb (13.7-17.5) g/dL Hct (40.1-51.0) % MCV (79.0-92.2) fL MCH (25.7-32.2) pg MCHC (32.3-36.5) g/dL RDW (11.6-14.4) % Plt Count (163-337) x10^3/uL MPV (9.4-12.4) fL Gran % (34.0-67.9) % Immature Gran % (Auto) (0.001-0.429) % Nucleat RBC Rel Count (0.00-0.2) % Eos # (Auto) (0.04-0.54) x10^3/uL Immature Gran # (Auto) (0.001-0.031) x10^3u/L Absolute Lymphs (auto) (1.32-3.57) x10^3/uL Absolute Monos (auto) (0.30-0.82) x10^3/uL Absolute Nucleated RBC (0.00-0.012) x10^3u/L Lymphocytes % (21.8-53.1) % Monocytes % (5.3-12.2) % Eosinophils % (0.8-7.0) % Basophils % (0.2-1.2) % Absolute Granulocytes (1.78-5.38) x10^3/uL Basophils # (0.01-0.08) x10^3/uL D-Dimer (0.0-0.50) mg/L Sodium (135-145) mmol/L Potassium (3.5-5.1) mmol/L Chloride (98-107) mmol/L Carbon Dioxide (22-30) mmol/L Anion Gap (5-15) MEQ/L BUN (9-20) mg/dL Creatinine (0.66-1.25) mg/dL Estimated GFR ML/MIN Glucose (74-106) mg/dL Lactic Acid (0.4-2.0) Calcium (8.4-10.2) mg/dL Magnesium (1.6-2.3) mg/dL Total Bilirubin (0.2-1.3) mg/dL AST (17-59) U/L ALT (0-50) U/L Alkaline Phosphatase (38-126) U/L Troponin I < 0.012 < 0.012 (0.000-0.033) ng/mL NT-Pro-B Natriuret Pep (<300) pg/mL Serum Total Protein (6.3-8.2) g/dL Albumin (3.5-5.0) g/dL Influenza Type A Ag NEGATIVE (NEGATIVE) Influenza Type B Ag NEGATIVE (NEGATIVE) RSV (PCR) NEGATIVE (NEGATIVE) SARS-CoV-2 (PCR) NEGATIVE (NEGATIVE) 07/09/24 07/09/24 07/09/24 Range/Units 13:30 13:30 13:30 WBC 12.7 H (4.23-9.07) x10^3/uL RBC 5.02 (4.63-6.08) x10^6/uL Hgb 15.0 (13.7-17.5) g/dL Hct 44.1 (40.1-51.0) % MCV 87.8 (79.0-92.2) fL MCH 29.9 (25.7-32.2) pg MCHC 34.0 (32.3-36.5) g/dL RDW 12.1 (11.6-14.4) % Plt Count 278 (163-337) x10^3/uL MPV 10.1 (9.4-12.4) fL Gran % 75.9 H (34.0-67.9) % Immature Gran % (Auto) 0.7 H (0.001-0.429) % Nucleat RBC Rel Count 0.0 (0.00-0.2) % Eos # (Auto) 0.17 (0.04-0.54) x10^3/uL Immature Gran # (Auto) 0.09 H (0.001-0.031) x10^3u/L Absolute Lymphs (auto) 1.77 (1.32-3.57) x10^3/uL Absolute Monos (auto) 1.01 H (0.30-0.82) x10^3/uL Absolute Nucleated RBC 0.00 (0.00-0.012) x10^3u/L Lymphocytes % 13.9 L (21.8-53.1) % Monocytes % 8.0 (5.3-12.2) % Eosinophils % 1.3 (0.8-7.0) % Basophils % 0.2 (0.2-1.2) % Absolute Granulocytes 9.63 H (1.78-5.38) x10^3/uL Basophils # 0.02 (0.01-0.08) x10^3/uL D-Dimer 1.64 H* (0.0-0.50) mg/L Sodium 138 (135-145) mmol/L Potassium 4.0 (3.5-5.1) mmol/L Chloride 98 (98-107) mmol/L Carbon Dioxide 27 (22-30) mmol/L Anion Gap 17.3 H (5-15) MEQ/L BUN 13 (9-20) mg/dL Creatinine 1.00 (0.66-1.25) mg/dL Estimated GFR 87.8 ML/MIN Glucose 135 H (74-106) mg/dL Lactic Acid (0.4-2.0) Calcium 9.8 (8.4-10.2) mg/dL Magnesium 1.7 (1.6-2.3) mg/dL Total Bilirubin 1.80 H (0.2-1.3) mg/dL AST 57 (17-59) U/L ALT 62 H (0-50) U/L Alkaline Phosphatase 98 (38-126) U/L Troponin I (0.000-0.033) ng/mL NT-Pro-B Natriuret Pep 48.9 (<300) pg/mL Serum Total Protein 7.9 (6.3-8.2) g/dL Albumin 4.9 (3.5-5.0) g/dL Influenza Type A Ag (NEGATIVE) Influenza Type B Ag (NEGATIVE) RSV (PCR) (NEGATIVE) SARS-CoV-2 (PCR) (NEGATIVE) 07/09/24 Range/Units 13:21 WBC (4.23-9.07) x10^3/uL RBC (4.63-6.08) x10^6/uL Hgb (13.7-17.5) g/dL Hct (40.1-51.0) % MCV (79.0-92.2) fL MCH (25.7-32.2) pg MCHC (32.3-36.5) g/dL RDW (11.6-14.4) % Plt Count (163-337) x10^3/uL MPV (9.4-12.4) fL Gran % (34.0-67.9) % Immature Gran % (Auto) (0.001-0.429) % Nucleat RBC Rel Count (0.00-0.2) % Eos # (Auto) (0.04-0.54) x10^3/uL Immature Gran # (Auto) (0.001-0.031) x10^3u/L Absolute Lymphs (auto) (1.32-3.57) x10^3/uL Absolute Monos (auto) (0.30-0.82) x10^3/uL Absolute Nucleated RBC (0.00-0.012) x10^3u/L Lymphocytes % (21.8-53.1) % Monocytes % (5.3-12.2) % Eosinophils % (0.8-7.0) % Basophils % (0.2-1.2) % Absolute Granulocytes (1.78-5.38) x10^3/uL Basophils # (0.01-0.08) x10^3/uL D-Dimer (0.0-0.50) mg/L Sodium (135-145) mmol/L Potassium (3.5-5.1) mmol/L Chloride (98-107) mmol/L Carbon Dioxide (22-30) mmol/L Anion Gap (5-15) MEQ/L BUN (9-20) mg/dL Creatinine (0.66-1.25) mg/dL Estimated GFR ML/MIN Glucose (74-106) mg/dL Lactic Acid 1.6 (0.4-2.0) Calcium (8.4-10.2) mg/dL Magnesium (1.6-2.3) mg/dL Total Bilirubin (0.2-1.3) mg/dL AST (17-59) U/L ALT (0-50) U/L Alkaline Phosphatase (38-126) U/L Troponin I (0.000-0.033) ng/mL NT-Pro-B Natriuret Pep (<300) pg/mL Serum Total Protein (6.3-8.2) g/dL Albumin (3.5-5.0) g/dL Influenza Type A Ag (NEGATIVE) Influenza Type B Ag (NEGATIVE) RSV (PCR) (NEGATIVE) SARS-CoV-2 (PCR) (NEGATIVE) - Progress Progress: re-examined Air Movement: fair Progress Note: 07/09/24 13:44 My medical decision making and the assignment of moderate complexity is based on review of the patient's past medical history, review of patient's medication list, reviewed patient drug allergy list, history present illness and physical findings on examination. The workup in this patient includes placement of intravenous line, twelve-lead EKG, D-dimer level, troponin level, CBC, CMP, viral swabs, PT/INR. Differential diagnosis includes but is not limited to myocardial infarction, postoperative pneumonia, pulmonary embolus, DVT, electrolyte abnormalities, arrhythmia 07/09/24 16:43 I interpreted the patient's laboratory data results. Based on the laboratory data results, the patient has an elevated D-dimer. This may be elevated secondary to the fact he has had recent surgery. However because of the constellation of symptoms he is having and he is in the postoperative period, we need to rule out DVT and a pulmonary embolus. I will order a right lower extremity venous Doppler as well as a CT scan of the chest with contrast. Venous Doppler of the right lower extremity was interpreted by the radiologist and I reviewed the impression. The impression states negative for DVT. Tiny Knight's cyst. 07/09/24 17:[address] scan of the chest with contrast was interpreted by the radiologist and I reviewed the impression. The patient states bilateral dependent atelectasis right greater than left. No suspicious pulmonary mass, infiltrate, nodule or effusion. No pneumothorax. No obvious central pulmonary embolus. No acute cardiopulmonary abnormalities. Little to no opacification of the pulmonary arteries. This limits evaluation for pulmonary embolus 07/09/24 17:49 I spoke with the hospitalist, Dr. Duarte. I reviewed the patient's presenting complaint, physical findings on examination and workup results. The CT scan of the chest with contrast was inadequate to completely rule out pulmonary embolus. Therefore, we will place the patient in observation and provide him with Lovenox subcutaneous every 12 hours and repeat the CT scan of the chest with contrast in 24 hours from the time he underwent this study today. He agrees to place this patient in observation. Blood Culture(s) Obtained: Yes Antibiotics given: No Counseled pt/family regarding: lab results, diagnosis, rad results Medical Desision Making - Independent Historian Additional History obtained from: Spouse, Family - Diagnostic Testing Diagnostic test were ordered, analyzed, and reviewed by me: Yes Radiological Interpretation: Reviewed by me, Teleradiologist Report - Risk of complications The pt has a high risk of morbidity or mortality based on: Decision regarding hospitilization or escalation of hosp level of care - Departure Departure Disposition: Observation Clinical Impression: Chest pain, Elevated d-dimer Condition: Stable Critical Care Time: No
[2024-07-09 13:32] LABS: Absolute Neutrophil Ct (ANC) 9.63 x10^3/uL (1.78-5.38); BASOPHIL % 0.2 % (0.2-1.2); Basophil (Absolute #) 0.02 x10^3/uL (0.01-0.08); Eosinophil % 1.3 % (0.8-7.0); Eosinophil (Absolute #) 0.17 x10^3/uL (0.04-0.54); Hematocrit 44.1 % (40.1-51.0); IMMATURE GRAN # 0.09 x10^3u/L (0.001-0.031); IMMATURE GRAN % 0.7 % (0.001-0.429); Lymphocyte (Absolute #) 1.77 x10^3/uL (1.32-3.57); Lymphocytes % 13.9 % (21.8-53.1); Mean Cell Volume 87.8 fL (79.0-92.2); Mean Corpuscular Hemoglobin 29.9 pg (25.7-32.2); Mean Platelet Volume 10.1 fL (9.4-12.4); Monocyte (Absolute #) 1.01 x10^3/uL (0.30-0.82); Neutrophil % 75.9 % (34.0-67.9); Platelet Count 278 x10^3/uL (163-337); Red Blood Count 5.02 x10^6/uL (4.63-6.08); Red Cell Distribution Width 12.1 % (11.6-14.4); White Blood Count 12.7 x10^3/uL (4.23-9.07)
[2024-07-09] MEDS ORDERED: Zofran 4 MG/2 ML VIAL ONE (13:36)
[2024-07-09] MEDS ORDERED: Hydromorphone 1 mg/ml Injection ONE (13:36)
[2024-07-09] MEDS: Hydromorphone 1 mg/ml Injection IV ONE (13:37)
[2024-07-09] MEDS: Zofran 4 MG/2 ML VIAL IV ONE (13:37)
[2024-07-09 14:28] LABS: ALBUMIN 4.9 g/dL (3.5-5.0); ANION GAP 17.3 MEQ/L (5-15); BILIRUBIN,TOTAL 1.8 mg/dL (0.2-1.3); Calcium 9.8 mg/dL (8.4-10.2); EST GLOMERULAR FILTRATION RATE 87.8 ML/MIN; MAGNESIUM 1.7 mg/dL (1.6-2.3); NT PRO BNPII 48.9 pg/mL (<300); Total Protein 7.9 g/dL (6.3-8.2)
[2024-07-09 14:35] LABS: INFLUENZA A NEGATIVE (NEGATIVE); INFLUENZA B NEGATIVE (NEGATIVE); RESPIRATORY SYNCTIAL VIRUS NEGATIVE (NEGATIVE); SARS-CoV-2 Xpert Express NEGATIVE (NEGATIVE)
[2024-07-09] MEDS ORDERED: ENOXAPARIN SODIUM SQ ONE (15:05)
[2024-07-09] MEDS: ENOXAPARIN SODIUM SQ STA (15:06)
[2024-07-09] MEDS ORDERED: Sterile H2O 10 ml IJ ONE (16:28)
[2024-07-09] MEDS ORDERED: solu-MEDROL ONE (16:29)
[2024-07-09] MEDS ORDERED: Sodium Chloride 0.9% 1000 ML 1,000 ML ONE (16:29)
[2024-07-09] MEDS ORDERED: BENADRYL 50 MG/ML ONE (16:29)
[2024-07-09] MEDS: BENADRYL 50 MG/ML IV ONE (16:30)
[2024-07-09] MEDS: solu-MEDROL 125 MG, Sterile H2O 10 ml 2 ML IV ONE (16:30)
[2024-07-09] MEDS: Sodium Chloride 0.9% 1000 ML 1,000 ML IV SCH ×2 (16:31→20:53)
--- NOTE | 2024-07-09 16:40 | XRAY ---
Indication: Postop swelling. Elevated d-dimer. Two-dimensional sonogram and color Doppler imaging major venous vessels right leg performed. Comparison: None No thrombus seen in the examined deep venous vessels right leg including greater saphenous vein. Veins demonstrate normal compressibility. Venous waveforms are normal with and without augmentation. Posterior knee demonstrates small 0.5 x 1.5 cm Knight's cyst. Impression: Right leg negative for DVT. Tiny Knight's cyst.
--- NOTE | 2024-07-09 17:06 | XRAY ---
Indication: Postop pain. Short of breath. Elevated d-dimer. Multiple contiguous axial images obtained through the chest using 80 cc Isovue 370 contrast and PE protocol. Comparison: None Little to no opacification pulmonary arteries limits evaluation for pulmonary embolus. No obvious central pulmonary embolus. Heart not enlarged. Aorta is normal in course and caliber. Tiny mediastinal and right hilar calcified nodes. No pathologic mediastinal/hilar lymphadenopathy. Small hiatal hernia. Lungs demonstrates bilateral dependent atelectasis, right greater than left. Minimal biapical subpleural cystic changes. No suspicious pulmonary mass/nodule, infiltrate, effusion, or pneumothorax. Bony thorax intact with minimal degenerative changes throughout the spine and tiny multilevel foraminal nodes. Limited upper abdomen including adrenal glands are unremarkable. Impression: 1. Pulmonary embolus evaluation limited due to poor contrast opacification. No obvious central pulmonary embolus. 2. Chronic findings including biapical subpleural cystic changes, hiatal hernia, chronic bony findings, and old granulomatous disease. 3. No acute cardiopulmonary abnormalities.
[2024-07-09] MEDS ORDERED: NON-FORMULARY ITEM (Oxycodone Hcl/Acetaminophen [Percocet 7.5-325 Mg Tablet] 1 EACH Tablet PO PRN (20:47)
[2024-07-09] MEDS ORDERED: NON-FORMULARY ITEM (Albuterol Sulfate Mdi*** 8.5 GM Hfa.Aer.Ad) IH PRN (20:47)
--- NOTE | 2024-07-09 21:07 | PCM.HP ---
History of Present Illness - Chief Complaint Chief Complaint: chest pain, shortness of breath Date: 07/09/24 History of Present Illness: 58-year-old male with history of asthma, presents with sudden onset of chest pain and dyspnea. 5 days prior to mission, patient underwent a right knee arthroscopy. He did well initially, but developed swelling and pain in the right knee on postop day 2 when he started physical therapy. The knee pain and swelling is improving, and he never had any erythema or any edema in his lower leg. However, he started developing some fevers last night. This morning, he woke with a sharp stabbing pain in his back, that radiated around to his chest. Eventually he developed dyspnea, worse with inspiration, associated with more of a pressure-like feeling. He states he does not feel like his typical asthma exacerbation, and he denies any wheezing. He denies sore throat, cough, rhinorrhea, or congestion. However, he developed progressive dyspnea and at 1 point felt lightheaded without any actual syncope. His dyspnea was only relieved after he received Lovenox in the ED. He did not try using his inhalers because he stated it did not feel like his typical asthma symptoms. He does not wear oxygen at home. He has no personal history of prior blood clots. He has a brother who had a DVT in his leg, but he does not know if it was provoked or unprovoked. In the ED, patient was given Solu-Medrol 125 mg, with 1 L normal saline, Dilaudid, Lovenox 100 mg, Benadryl, and Zofran. Currently, patient feels like he is doing better, although not back to his baseline. - Review of Systems All Other Systems: Reviewed and Negative Medications & Allergies Home Medications: Home Medication List Omeprazole 20 mg PO DAILY 03/16/24 [History Confirmed 07/09/24] Oxycodone HCl/Acetaminophen [Percocet 7.5-325 mg Tablet] 1 each PO QID PRN PRN 06/14/24 [History Confirmed 07/09/24] Albuterol Sulfate Mdi [ALBUTEROL/Proair Hfa MDI] 1 puff IH Q4-6HPRN PRN 07/09/24 [History Confirmed 07/09/24] Fluticasone Propion/Salmeterol [Fluticasone-Salmeterol 250-50] 1 puff IH DAILY 07/09/24 [History Confirmed 07/09/24] Allergies/Adverse Reactions: Allergies Allergy/AdvReac Type Severity Reaction Status Date / Time No Known Drug Allergies Allergy Verified 07/09/24 13:16 - Past Medical History Past Medical History: Yes Neurological History: Migraines, Other ENT History: No Pertinent History Cardiac History: No Pertinent History Respiratory History: Asthma Endocrine Medical History: No Pertinent History Musculoskelatal History: Other GI Medical History: GERD History: No Pertinent History Pyscho-Social History: No Pertinent History Male Reproductive Disorders: No Pertinent History Comment: Vascular Migraines, bilat Rotator Cuff Repair, R Biceps Tenodesis, GERD - Past Surgical History Past Surgical History: Yes Neuro Surgical History: No Pertinent History Cardiac History: No Pertinent History Respiratory Surgery: No Pertinent History GI Surgical History: No Pertinent History Genitourinary Surgical Hx: No Pertinent History Musculskeletal Surgical Hx: Orthopedic Surgery, Other Male Surgical History: No Pertinent History Other Surgical History: bilat rotator cuff surgery. R knee surgery 07/04/24 Dr Raza [facility] Significant Family History: other (Brother with DVT) - Social History Smoking Status: Former smoker Exposure to second hand smoke: No Alcohol: Weekly Drug Use: none - Social Determinants of Health Will the patient participate in the screening: Declined to provide Do you worry about a steady place to live?: No Do you have any problems with any of the following?: No known problems In the past 12 months,have you had to go without utilities?: No Have you or anyone in your house had to go without enough: No Transportation Issues: No Has anyone in your support network made you feel unsafe?: No - Physical Exam Vital Signs: Vital Signs - 24 hr Temp Pulse Resp BP BP BP Pulse Ox 07/09/24 20:51 96 07/09/24 20:00 98.0 F 111 H 20 109/72 96 07/09/24 19:29 98.2 F 108 H 20 133/68 96 07/09/24 18:00 127/91 07/09/24 17:30 113 H 26 H 142/82 96 07/09/24 17:01 110 H 26 H 119/88 97 07/09/24 16:30 118 H 30 H 118/64 99 07/09/24 16:29 123 H 21 140/102 93 L 07/09/24 16:20 132 H 17 95 07/09/24 16:00 125 H 10 L 136/87 96 07/09/24 15:30 124 H 11 L 141/98 96 07/09/24 15:00 123 H 25 H 147/99 98 07/09/24 14:30 117 H 12 156/97 99 07/09/24 14:00 112 H 15 112/82 99 07/09/24 13:30 117 H 17 159/132 96 07/09/24 13:29 117 H 17 159/132 97 07/09/24 13:28 98 07/09/24 13:19 100.2 F 124 H 21 162/104 97 07/09/24 13:18 100.2 F 132 H 16 162/104 98 07/09/24 13:17 133 H 16 98 Physical Exam GEN: Sitting up in bed in no acute distress. HENT: Normocephalic, atraumatic. Moist mucous membranes. EYES: Normal inspection, anicteric sclera, extraocular movements intact. NECK: Supple, full range of motion CV: Regular rate and rhythm, no murmurs, no gallops. No JVD or edema. PULM: Clear to auscultation bilaterally, no work of breathing. On 2 L nasal cannula ABD: Nondistended, nontender. MSK: Right knee without any further effusion. Full range of motion. SKIN: No rashes, normal color. NEURO: Face symmetric, no focal motor or sensory deficits. PSYCH: Alert, oriented x 3 Results - Labs Lab/Micro Results: Lab Results-Last 24 Hours 07/09/24 07/09/24 07/09/24 Range/Units 13:21 13:30 13:30 WBC 12.7 H (4.23-9.07) x10^3/uL RBC 5.02 (4.63-6.08) x10^6/uL Hgb 15.0 (13.7-17.5) g/dL Hct 44.1 (40.1-51.0) % MCV 87.8 (79.0-92.2) fL MCH 29.9 (25.7-32.2) pg MCHC 34.0 (32.3-36.5) g/dL RDW 12.1 (11.6-14.4) % Plt Count 278 (163-337) x10^3/uL MPV 10.1 (9.4-12.4) fL Gran % 75.9 H (34.0-67.9) % Immature Gran % (Auto) 0.7 H (0.001-0.429) % Nucleat RBC Rel Count 0.0 (0.00-0.2) % Eos # (Auto) 0.17 (0.04-0.54) x10^3/uL Immature Gran # (Auto) 0.09 H (0.001-0.031) x10^3u/L Absolute Lymphs (auto) 1.77 (1.32-3.57) x10^3/uL Absolute Monos (auto) 1.01 H (0.30-0.82) x10^3/uL Absolute Nucleated RBC 0.00 (0.00-0.012) x10^3u/L Lymphocytes % 13.9 L (21.8-53.1) % Monocytes % 8.0 (5.3-12.2) % Eosinophils % 1.3 (0.8-7.0) % Basophils % 0.2 (0.2-1.2) % Absolute Granulocytes 9.63 H (1.78-5.38) x10^3/uL Basophils # 0.02 (0.01-0.08) x10^3/uL D-Dimer (0.0-0.50) mg/L Sodium 138 (135-145) mmol/L Potassium 4.0 (3.5-5.1) mmol/L Chloride 98 (98-107) mmol/L Carbon Dioxide 27 (22-30) mmol/L Anion Gap 17.3 H (5-15) MEQ/L BUN 13 (9-20) mg/dL Creatinine 1.00 (0.66-1.25) mg/dL Estimated GFR 87.8 ML/MIN Glucose 135 H (74-106) mg/dL Lactic Acid 1.6 (0.4-2.0) Calcium 9.8 (8.4-10.2) mg/dL Magnesium 1.7 (1.6-2.3) mg/dL Total Bilirubin 1.80 H (0.2-1.3) mg/dL AST 57 (17-59) U/L ALT 62 H (0-50) U/L Alkaline Phosphatase 98 (38-126) U/L Troponin I (0.000-0.033) ng/mL NT-Pro-B Natriuret Pep 48.9 (<300) pg/mL Serum Total Protein 7.9 (6.3-8.2) g/dL Albumin 4.9 (3.5-5.0) g/dL Influenza Type A Ag (NEGATIVE) Influenza Type B Ag (NEGATIVE) RSV (PCR) (NEGATIVE) SARS-CoV-2 (PCR) (NEGATIVE) 07/09/24 07/09/24 07/09/24 Range/Units 13:30 13:30 13:44 WBC (4.23-9.07) x10^3/uL RBC (4.63-6.08) x10^6/uL Hgb (13.7-17.5) g/dL Hct (40.1-51.0) % MCV (79.0-92.2) fL MCH (25.7-32.2) pg MCHC (32.3-36.5) g/dL RDW (11.6-14.4) % Plt Count (163-337) x10^3/uL MPV (9.4-12.4) fL Gran % (34.0-67.9) % Immature Gran % (Auto) (0.001-0.429) % Nucleat RBC Rel Count (0.00-0.2) % Eos # (Auto) (0.04-0.54) x10^3/uL Immature Gran # (Auto) (0.001-0.031) x10^3u/L Absolute Lymphs (auto) (1.32-3.57) x10^3/uL Absolute Monos (auto) (0.30-0.82) x10^3/uL Absolute Nucleated RBC (0.00-0.012) x10^3u/L Lymphocytes % (21.8-53.1) % Monocytes % (5.3-12.2) % Eosinophils % (0.8-7.0) % Basophils % (0.2-1.2) % Absolute Granulocytes (1.78-5.38) x10^3/uL Basophils # (0.01-0.08) x10^3/uL D-Dimer 1.64 H* (0.0-0.50) mg/L Sodium (135-145) mmol/L Potassium (3.5-5.1) mmol/L Chloride (98-107) mmol/L Carbon Dioxide (22-30) mmol/L Anion Gap (5-15) MEQ/L BUN (9-20) mg/dL Creatinine (0.66-1.25) mg/dL Estimated GFR ML/MIN Glucose (74-106) mg/dL Lactic Acid (0.4-2.0) Calcium (8.4-10.2) mg/dL Magnesium (1.6-2.3) mg/dL Total Bilirubin (0.2-1.3) mg/dL AST (17-59) U/L ALT (0-50) U/L Alkaline Phosphatase (38-126) U/L Troponin I < 0.012 (0.000-0.033) ng/mL NT-Pro-B Natriuret Pep (<300) pg/mL Serum Total Protein (6.3-8.2) g/dL Albumin (3.5-5.0) g/dL Influenza Type A Ag NEGATIVE (NEGATIVE) Influenza Type B Ag NEGATIVE (NEGATIVE) RSV (PCR) NEGATIVE (NEGATIVE) SARS-CoV-2 (PCR) NEGATIVE (NEGATIVE) 07/09/24 Range/Units 17:46 WBC (4.23-9.07) x10^3/uL RBC (4.63-6.08) x10^6/uL Hgb (13.7-17.5) g/dL Hct (40.1-51.0) % MCV (79.0-92.2) fL MCH (25.7-32.2) pg MCHC (32.3-36.5) g/dL RDW (11.6-14.4) % Plt Count (163-337) x10^3/uL MPV (9.4-12.4) fL Gran % (34.0-67.9) % Immature Gran % (Auto) (0.001-0.429) % Nucleat RBC Rel Count (0.00-0.2) % Eos # (Auto) (0.04-0.54) x10^3/uL Immature Gran # (Auto) (0.001-0.031) x10^3u/L Absolute Lymphs (auto) (1.32-3.57) x10^3/uL Absolute Monos (auto) (0.30-0.82) x10^3/uL Absolute Nucleated RBC (0.00-0.012) x10^3u/L Lymphocytes % (21.8-53.1) % Monocytes % (5.3-12.2) % Eosinophils % (0.8-7.0) % Basophils % (0.2-1.2) % Absolute Granulocytes (1.78-5.38) x10^3/uL Basophils # (0.01-0.08) x10^3/uL D-Dimer (0.0-0.50) mg/L Sodium (135-145) mmol/L Potassium (3.5-5.1) mmol/L Chloride (98-107) mmol/L Carbon Dioxide (22-30) mmol/L Anion Gap (5-15) MEQ/L BUN (9-20) mg/dL Creatinine (0.66-1.25) mg/dL Estimated GFR ML/MIN Glucose (74-106) mg/dL Lactic Acid (0.4-2.0) Calcium (8.4-10.2) mg/dL Magnesium (1.6-2.3) mg/dL Total Bilirubin (0.2-1.3) mg/dL AST (17-59) U/L ALT (0-50) U/L Alkaline Phosphatase (38-126) U/L Troponin I < 0.012 (0.000-0.033) ng/mL NT-Pro-B Natriuret Pep (<300) pg/mL Serum Total Protein (6.3-8.2) g/dL Albumin (3.5-5.0) g/dL Influenza Type A Ag (NEGATIVE) Influenza Type B Ag (NEGATIVE) RSV (PCR) (NEGATIVE) SARS-CoV-2 (PCR) (NEGATIVE) - Radiology Impressions Radiology Exams & Impressions: Radiology Procedures Category Date Time Status CHEST WITH CONTRAST [CT] Stat Exams 07/09/24 14:12 Completed CHEST WITH CONTRAST [CT] Stat Exams 07/10/24 14:30 Ordered VENOUS UNILAT/LIMITED EXTREMIT [US] Stat Exams 07/09/24 14:12 Completed CTA chest unable to evaluate for pulmonary embolus due to poor contrast opacification, with little to no opacification in the pulmonary arteries. Heart is not enlarged. He has bilateral dependent atelectasis. Some chronic biapical subpleural cystic changes, and old granulomatous disease. But no acute ab normalities. Right leg venous Doppler negative for DVT - Other Procedures and Tests Respiratory Therapy 07/09/24 18:42 Oxygen Nasal Cannula 2 lpm Respiratory Therapy Consult ONCE Assessment/Plan (1) Pulmonary embolism Current Visit: Yes Status: Acute Assessment & Plan: 58-year-old male with history of asthma, here with acute onset of pleuritic chest pain and dyspnea. ## Likely pulmonary embolism patient has acute onset of dyspnea and chest pain, worse with inspiration, after recent knee surgery. Patient was not taking any aspirin or anticoagulation after his surgery as it was only an arthroscopy. Doppler ultrasound of the leg is negative for DVT, but unfortunately were not able to get a quality CTA chest to evaluate the pulmonary arteries. However, clinically, his description of symptoms, acute onset, and lack of any other p ulmonary findings to explain his hypoxia and dyspnea, are all consistent with acute pulmonary embolism. Start patient on Lovenox 1 mg/kg BID (first dose ordered in the ED) Repeat CTA chest tomorrow to verify presence of PE If present, will transition patient to direct oral anticoagulation ## Acute hypoxic respiratory failure secondary to likely PE as above. Patient is currently requiring 2 L oxygen. Suspect he would need more with exertion. Evaluate patient for home oxygen, as typically takes 1 to 3 months for hypoxia to improve after PE. ## Status post right knee surgery pain currently improving. Continue home Percocet 7.5, as well as PRN acetaminophen ## Asthma without any current exacerbation. Continue home fluticasone/salmeterol Continue home PRN albuterol CODE STATUS: Full code Diet: Regular Prophylaxis: Therapeutic Lovenox Dispo: Place in observation, and expect patient to go home the next day or so, likely with home oxygen Code(s): I26.99 - OTHER PULMONARY EMBOLISM WITHOUT ACUTE COR PULMONALE Telemedicine Encounter - Telemedicine Encounter Telemedicine Encounter: "The entirety of this encounter was performed via Telemedicine" This visit was performed using real-time audio and video connection between my location and thepatients locationwith the assistance of a surrogateat the patients location. Written or verbal consent was obtained from the patient/guardian to perform this visit [email or web address]. Any patient questions regarding the telemedicine interaction were answered.
[2024-07-09] MEDS ORDERED: ENOXAPARIN SODIUM SQ SCH (22:00)
[2024-07-10] MEDS: TYLENOL 325 MG PO PRN (00:28)
[2024-07-10] MEDS: Hydromorphone 1 mg/ml Injection IV PRN (03:52)
[2024-07-10] MEDS: Zofran 4 MG/2 ML VIAL IV PRN (03:52)
[2024-07-10] MEDS: PERCOCET TABLET 5/325MG PO PRN (04:36)
[2024-07-10] MEDS: Protonix 40MG Tablet PO SCH (04:47)
[2024-07-10 05:10] LABS: Hematocrit 39.6 % (40.1-51.0); Hemoglobin 13.5 g/dL (13.7-17.5); Mean Cell Volume 86.8 fL (79.0-92.2); Mean Corpuscular Hemoglobin 29.6 pg (25.7-32.2); Mean Corpuscular Hgb Concent. 34.1 g/dL (32.3-36.5); Mean Platelet Volume 10.7 fL (9.4-12.4); Platelet Count 252 x10^3/uL (163-337); Red Blood Count 4.56 x10^6/uL (4.63-6.08); White Blood Count 12.5 x10^3/uL (4.23-9.07)
--- NOTE | 2024-07-10 05:24 | PCM.NOTE ---
Date and Time: 07/10/24 0518 Subjective Assessment: HPI: 58-year-old male with history of asthma, presented to ED 07/09/24 with sudden onset of chest pain and dyspnea. 5 days prior to admission, patient underwent a right knee arthroscopy. He did well initially, but developed swelling and pain in the right knee on postop day 2 when he started physical therapy. The knee pain and swelling is improving, and he never had any erythema or any edema in his lower leg. However, he started developing some fevers last night. This morning, he woke with a sharp stabbing pain in his back, that radiated around to his chest. Eventually he developed dyspnea, worse with inspiration, associated with more of a pressure-like feeling. He states he does not feel like his typ ical asthma exacerbation, and he denies any wheezing. He denies sore throat, cough, rhinorrhea, or congestion. However, he developed progressive dyspnea and at 1 point felt lightheaded without any actual syncope. His dyspnea was only relieved after he received Lovenox in the ED. He did not try using his inhalers because he stated it did not feel like his typical asthma symptoms. He does not wear oxygen at home. He has no personal history of prior blood clots. He has a brother who had a DVT in his leg, but he does not know if it was provoked or unprovoked. In the ED, patient was given Solu-Medrol 125 mg, with 1 L normal saline, Dilaudid, Lovenox 100 mg, Benadryl, and Zofran. Currently, patient feels like he is doing better, although not back to his baseline. 07/10/24: Met with patient bedside. Endorses improvement in dyspnea - now on RA. Repeat CT chest pending- plan to continue lovenox pending CT results. Will switch to oral anticoagulation if positive. - Review of Systems Constitutional: No Symptoms Eyes: No Symptoms Ears, Nose, & Throat: No Symptoms Respiratory: Short Of Breath Cardiac: No Symptoms Abdominal/Gastrointestinal: No Symptoms Genitourinary Symptoms: No Symptoms Musculoskeletal: Joint Pain (Right knee ) Skin: Other (right knee with stitches/edema) Neurological: No Symptoms Psychological: No Symptoms Endocrine: No Symptoms Hematologic/Lymphatic: No Symptoms Immunological/Allergic: No Symptoms Objective Exam General Appearance: no apparent distress Neurologic Exam: alert, oriented x 3, cooperative Skin Exam: normal color Eye Exam: PERRL Ears, Nose, Throat Exam: normal ENT inspection Neck Exam: normal inspection Respiratory Exam: crackles/rales Cardiovascular Exam: regular rate/rhythm, normal heart sounds Gastrointestinal/Abdomen Exam: soft, normal bowel sounds Extremity Exam: joint swelling (Right knee) Back Exam: normal inspection Male Genitalia Exam: deferred Rectal Exam: deferred Objective Data Vital Signs: Vital Signs - 24 hr Temp Pulse Resp BP BP BP Pulse Ox 07/10/24 04:00 97.5 F 77 22 114/70 96 07/10/24 00:00 97.8 F 92 H 20 142/77 97 07/09/24 20:51 96 07/09/24 20:00 98.0 F 111 H 20 109/72 96 07/09/24 19:29 98.2 F 108 H 20 133/68 96 07/09/24 18:00 127/91 07/09/24 17:30 113 H 26 H 142/82 96 07/09/24 17:01 110 H 26 H 119/88 97 07/09/24 16:30 118 H 30 H 118/64 99 07/09/24 16:29 123 H 21 140/102 93 L 07/09/24 16:20 132 H 17 95 07/09/24 16:00 125 H 10 L 136/87 96 07/09/24 15:30 124 H 11 L 141/98 96 07/09/24 15:00 123 H 25 H 147/99 98 07/09/24 14:30 117 H 12 156/97 99 07/09/24 14:00 112 H 15 112/82 99 07/09/24 13:30 117 H 17 159/132 96 07/09/24 13:29 117 H 17 159/132 97 07/09/24 13:28 98 07/09/24 13:19 100.2 F 124 H 21 162/104 97 07/09/24 13:18 100.2 F 132 H 16 162/104 98 07/09/24 13:17 133 H 16 98 Pain Assessment - Last Documented Pain Intensity 5 Pain Scale Used 0-10 Pain Scale Intake and Output: Intake & Output 07/07/24 07/08/24 07/09/24 07/10/24 11:59 11:59 11:59 11:59 Intake Total 240 Balance 240 Weight 98.9 kg Lab Results: Lab Results-Last 24 Hours 07/09/24 07/09/24 07/09/24 Range/Units 13:21 13:30 13:30 WBC 12.7 H (4.23-9.07) x10^3/uL RBC 5.02 (4.63-6.08) x10^6/uL Hgb 15.0 (13.7-17.5) g/dL Hct 44.1 (40.1-51.0) % MCV 87.8 (79.0-92.2) fL MCH 29.9 (25.7-32.2) pg MCHC 34.0 (32.3-36.5) g/dL RDW 12.1 (11.6-14.4) % Plt Count 278 (163-337) x10^3/uL MPV 10.1 (9.4-12.4) fL Gran % 75.9 H (34.0-67.9) % Immature Gran % (Auto) 0.7 H (0.001-0.429) % Nucleat RBC Rel Count 0.0 (0.00-0.2) % Eos # (Auto) 0.17 (0.04-0.54) x10^3/uL Immature Gran # (Auto) 0.09 H (0.001-0.031) x10^3u/L Absolute Lymphs (auto) 1.77 (1.32-3.57) x10^3/uL Absolute Monos (auto) 1.01 H (0.30-0.82) x10^3/uL Absolute Nucleated RBC 0.00 (0.00-0.012) x10^3u/L Lymphocytes % 13.9 L (21.8-53.1) % Monocytes % 8.0 (5.3-12.2) % Eosinophils % 1.3 (0.8-7.0) % Basophils % 0.2 (0.2-1.2) % Absolute Granulocytes 9.63 H (1.78-5.38) x10^3/uL Basophils # 0.02 (0.01-0.08) x10^3/uL D-Dimer (0.0-0.50) mg/L Sodium 138 (135-145) mmol/L Potassium 4.0 (3.5-5.1) mmol/L Chloride 98 (98-107) mmol/L Carbon Dioxide 27 (22-30) mmol/L Anion Gap 17.3 H (5-15) MEQ/L BUN 13 (9-20) mg/dL Creatinine 1.00 (0.66-1.25) mg/dL Estimated GFR 87.8 ML/MIN Glucose 135 H (74-106) mg/dL Lactic Acid 1.6 (0.4-2.0) Calcium 9.8 (8.4-10.2) mg/dL Magnesium 1.7 (1.6-2.3) mg/dL Total Bilirubin 1.80 H (0.2-1.3) mg/dL AST 57 (17-59) U/L ALT 62 H (0-50) U/L Alkaline Phosphatase 98 (38-126) U/L Troponin I (0.000-0.033) ng/mL NT-Pro-B Natriuret Pep 48.9 (<300) pg/mL Serum Total Protein 7.9 (6.3-8.2) g/dL Albumin 4.9 (3.5-5.0) g/dL Influenza Type A Ag (NEGATIVE) Influenza Type B Ag (NEGATIVE) RSV (PCR) (NEGATIVE) SARS-CoV-2 (PCR) (NEGATIVE) 07/09/24 07/09/24 07/09/24 Range/Units 13:30 13:30 13:44 WBC (4.23-9.07) x10^3/uL RBC (4.63-6.08) x10^6/uL Hgb (13.7-17.5) g/dL Hct (40.1-51.0) % MCV (79.0-92.2) fL MCH (25.7-32.2) pg MCHC (32.3-36.5) g/dL RDW (11.6-14.4) % Plt Count (163-337) x10^3/uL MPV (9.4-12.4) fL Gran % (34.0-67.9) % Immature Gran % (Auto) (0.001-0.429) % Nucleat RBC Rel Count (0.00-0.2) % Eos # (Auto) (0.04-0.54) x10^3/uL Immature Gran # (Auto) (0.001-0.031) x10^3u/L Absolute Lymphs (auto) (1.32-3.57) x10^3/uL Absolute Monos (auto) (0.30-0.82) x10^3/uL Absolute Nucleated RBC (0.00-0.012) x10^3u/L Lymphocytes % (21.8-53.1) % Monocytes % (5.3-12.2) % Eosinophils % (0.8-7.0) % Basophils % (0.2-1.2) % Absolute Granulocytes (1.78-5.38) x10^3/uL Basophils # (0.01-0.08) x10^3/uL D-Dimer 1.64 H* (0.0-0.50) mg/L Sodium (135-145) mmol/L Potassium (3.5-5.1) mmol/L Chloride (98-107) mmol/L Carbon Dioxide (22-30) mmol/L Anion Gap (5-15) MEQ/L BUN (9-20) mg/dL Creatinine (0.66-1.25) mg/dL Estimated GFR ML/MIN Glucose (74-106) mg/dL Lactic Acid (0.4-2.0) Calcium (8.4-10.2) mg/dL Magnesium (1.6-2.3) mg/dL Total Bilirubin (0.2-1.3) mg/dL AST (17-59) U/L ALT (0-50) U/L Alkaline Phosphatase (38-126) U/L Troponin I < 0.012 (0.000-0.033) ng/mL NT-Pro-B Natriuret Pep (<300) pg/mL Serum Total Protein (6.3-8.2) g/dL Albumin (3.5-5.0) g/dL Influenza Type A Ag NEGATIVE (NEGATIVE) Influenza Type B Ag NEGATIVE (NEGATIVE) RSV (PCR) NEGATIVE (NEGATIVE) SARS-CoV-2 (PCR) NEGATIVE (NEGATIVE) 07/09/24 Range/Units 17:46 WBC (4.23-9.07) x10^3/uL RBC (4.63-6.08) x10^6/uL Hgb (13.7-17.5) g/dL Hct (40.1-51.0) % MCV (79.0-92.2) fL MCH (25.7-32.2) pg MCHC (32.3-36.5) g/dL RDW (11.6-14.4) % Plt Count (163-337) x10^3/uL MPV (9.4-12.4) fL Gran % (34.0-67.9) % Immature Gran % (Auto) (0.001-0.429) % Nucleat RBC Rel Count (0.00-0.2) % Eos # (Auto) (0.04-0.54) x10^3/uL Immature Gran # (Auto) (0.001-0.031) x10^3u/L Absolute Lymphs (auto) (1.32-3.57) x10^3/uL Absolute Monos (auto) (0.30-0.82) x10^3/uL Absolute Nucleated RBC (0.00-0.012) x10^3u/L Lymphocytes % (21.8-53.1) % Monocytes % (5.3-12.2) % Eosinophils % (0.8-7.0) % Basophils % (0.2-1.2) % Absolute Granulocytes (1.78-5.38) x10^3/uL Basophils # (0.01-0.08) x10^3/uL D-Dimer (0.0-0.50) mg/L Sodium (135-145) mmol/L Potassium (3.5-5.1) mmol/L Chloride (98-107) mmol/L Carbon Dioxide (22-30) mmol/L Anion Gap (5-15) MEQ/L BUN (9-20) mg/dL Creatinine (0.66-1.25) mg/dL Estimated GFR ML/MIN Glucose (74-106) mg/dL Lactic Acid (0.4-2.0) Calcium (8.4-10.2) mg/dL Magnesium (1.6-2.3) mg/dL Total Bilirubin (0.2-1.3) mg/dL AST (17-59) U/L ALT (0-50) U/L Alkaline Phosphatase (38-126) U/L Troponin I < 0.012 (0.000-0.033) ng/mL NT-Pro-B Natriuret Pep (<300) pg/mL Serum Total Protein (6.3-8.2) g/dL Albumin (3.5-5.0) g/dL Influenza Type A Ag (NEGATIVE) Influenza Type B Ag (NEGATIVE) RSV (PCR) (NEGATIVE) SARS-CoV-2 (PCR) (NEGATIVE) Radiology Exams: Radiology Procedures Category Date Time Status CHEST WITH CONTRAST [CT] Stat Exams 07/09/24 14:12 Completed CHEST WITH CONTRAST [CT] Stat Exams 07/10/24 14:30 Ordered VENOUS UNILAT/LIMITED EXTREMIT [US] Stat Exams 07/09/24 14:12 Completed Assessment/Plan (1) Acute hypoxic respiratory failure Current Visit: Yes Status: Acute Assessment & Plan: -Symptomatology consistent with PE - acute onset of dyspnea and chest pain, worse with inspiration, after recent knee surgery. Patient was not taking any aspirin or anticoagulation after his surgery as it was only an arthroscopy. -CTA chest reviewed -unable to evaluate pulmonary arteries - will repeat today -Doppler ultrasound of the leg is negative for DVT Therapeutic lovenox -Eliquis PE dosing if PE present on repeat CT -Supplemental oxygen with spo2 goal >92% - qualify for home oxygen if unable to wean Code(s): J96.01 - ACUTE RESPIRATORY FAILURE WITH HYPOXIA (2) Status post right knee surgery Current Visit: Yes Status: Acute Assessment & Plan: -noted, continue home pain control regimen Code(s): Z98.890 - OTHER SPECIFIED POSTPROCEDURAL STATES (3) Asthma Current Visit: Yes Status: Acute Assessment & Plan: -not in exacerbation Continue home fluticasone/salmeterol Continue home PRN albuterol Code(s): J45.909 - UNSPECIFIED ASTHMA, UNCOMPLICATED (4) Chest pain Current Visit: Yes Status: Acute Assessment & Plan: -Trops negative x 2 -EKG with sinus tach- no acute ischemia -repeat EKG in the a.m. -Most likely secondary to possible PE -resolved VTE: Lovenox PPI: Protonix Dispo: 1-2 days Code(s): R07.9 - CHEST PAIN, UNSPECIFIED
[2024-07-10 05:30] LABS: ANION GAP 14.9 MEQ/L (5-15); Calcium 9.8 mg/dL (8.4-10.2); Creatinine 1 0.88 mg/dL (0.66-1.25); EST GLOMERULAR FILTRATION RATE 100.3 ML/MIN; Potassium 4.4 mmol/L (3.5-5.1)
[2024-07-10] MEDS ORDERED: ENOXAPARIN SODIUM SQ ONE (06:01)
[2024-07-10] MEDS: ENOXAPARIN SODIUM SQ SCH (06:07)
[2024-07-10 06:08] LABS: Appearance Clear (Clear); Bacteria None Seen /HPF (None Seen); Bilirubin Small (Negative); Blood Negative (Negative); Epithelial Cells None Seen /HPF (None Seen); Glucose, Urine 100 mg/dL (Negative); Ketones Trace (Negative); Leukocyte Esterase Negative (Negative); Nitrite Negative (Negative); Protein,Urine Dip 30 (Negative); RBC 0-2 /HPF (0-5); Specific Gravity >=1.030 (1.005-1.030); WBC 0-2 /HPF (0-5)
[2024-07-10] MEDS ORDERED: VENTOLIN COMMON CANISTER IH PRN ×2 (07:15→07:16)
[2024-07-10] MEDS ORDERED: FLUTICASONE-SALMETEROL 250-50 IH SCH (10:00)
[2024-07-10] MEDS ORDERED: NON-FORMULARY ITEM (Omeprazole [Omeprazole] 20 MG Tablet.Dr) PO SCH (10:00)
[2024-07-10] MEDS: Advair Hfa 115/21 Common canister IH SCH (10:42)
[2024-07-10] MEDS ORDERED: Sterile H2O 10 ml IJ ONE (12:34)
[2024-07-10] MEDS: solu-MEDROL IV ONE (12:41)
[2024-07-10] MEDS: BENADRYL 50 MG/ML IV ONE (15:40)
--- NOTE | 2024-07-10 17:10 | XRAY ---
Indication: Chest pain. Short of breath. Elevated d-dimer. Multiple contiguous axial images obtained through the chest using 80 cc Isovue 370 contrast and PE protocol. Comparison: One day earlier. Again suboptimal opacification pulmonary arteries but improved limits pulmonary embolus evaluation. Again no obvious central pulmonary embolus. Heart not enlarged. Aorta is normal course and caliber. Stable tiny mediastinal and right hilar calcified nodes. No pathologic mediastinal/hilar lymphadenopathy. Stable small harder hernia. Lungs again demonstrates bibasilar dependent atelectasis again right greater than left. Stable minimal biapical subpleural cystic changes and tiny left base calcified granuloma. No new pulmonary mass/nodule, infiltrate, or effusion. Bony thorax intact again with tiny multilevel Schmorl nodes. Limited upper abdomen unremarkable. Impression: 1. Pulmonary embolus evaluation again limited due to suboptimal contrast opacification. Again no obvious pulmonary embolus. 2. Again chronic findings including biapical subpleural cystic changes, small hiatal hernia, chronic bony findings, and old granulomatous disease. 3. No new cardiopulmonary abnormalities.
--- NOTE | 2024-07-10 18:02 | PCM.DS ---
Discharge Summary Date of Admission: 07/09/24 18:35 Date of Discharge: 07/10/24 Admitting Physician: GERALD ASENCIO MD Primary Care Provider: SIDNEY MOLINA Allergies Allergies Iodinated Contrast Media Adverse Reaction (Mild, Verified 07/10/24 16:32) Hives very few Hospital Summary - Hospital Course Hospital Course: 58-year-old male with history of asthma, presented to ED 07/09/24 with sudden onset of chest pain and dyspnea. 5 days prior to admission, patient underwent a right knee arthroscopy. He did well initially, but developed swelling and pain in the right knee on postop day 2 when he started physical therapy. The knee pain and swelling is improving, and he never had any erythema or any edema in his lower leg. However, he started developing some fevers last night. This morning, he woke with a sharp stabbing pain in his back, that radiated around to his chest. Eventually he developed dyspnea, worse with inspiration, associated with more of a pressure-like feeling. He states he does not feel like his typical asthma exacerbation, and he denies any wheezing. He denies sore throat, cough, rhinorrhea, or congestion. However, he developed progressive dyspnea and at 1 point felt lightheaded without any actual syncope. His dyspnea was only rel ieved after he received Lovenox in the ED. He did not try using his inhalers because he stated it did not feel like his typical asthma symptoms. He does not wear oxygen at home. He has no personal history of prior blood clots. He has a brother who had a DVT in his leg, but he does not know if it was provoked or unprovoked. CTA 07/09/24 and CTA 07/10/24Pulmonary embolus evaluation again limited due to suboptimal contrast opacification. Again no obvious pulmonary embolus Patient received IP treatment with lovenox. With CTA negative x 2 patient can discharge on ASA 325mg for post operative prophylaxis. Dyspnea improved. Patient on RA . Chest pain resolved. Patient is requesting discharge home. Discharge Note New Medications: ASA 325mg Follow Up: PCP/ ortho Latest Assessment & Plan (1) Acute hypoxic respiratory failure Current Visit: Yes Status: Acute Assessment & Plan: -Symptomatology consistent with PE - acute onset of dyspnea and chest pain, worse with inspiration, after recent knee surgery. Patient was not taking any aspirin or anticoagulation after his surgery as it was only an arthroscopy. -CTA chest reviewed -no obvious PE -Doppler ultrasound of the leg is negative for DVT Therapeutic lovenox -Eliquis PE dosing if PE present on repeat CT -Supplemental oxygen with spo2 goal >92% - RA at baseline and currently Code(s): J96.01 - ACUTE RESPIRATORY FAILURE WITH HYPOXIA (2) Status post right knee surgery Current Visit: Yes Status: Acute Assessment & Plan: -noted, continue home pain control regimen Code(s): Z98.890 - OTHER SPECIFIED POSTPROCEDURAL STATES (3) Asthma Current Visit: Yes Status: Acute Assessment & Plan: -not in exacerbation Continue home fluticasone/salmeterol Continue home PRN albuterol Code(s): J45.909 - UNSPECIFIED ASTHMA, UNCOMPLICATED (4) Chest pain Current Visit: Yes Status: Acute Assessment & Plan: -Trops negative x 2 -EKG with sinus tach- no acute ischemia -repeat EKG in the a.m. -Most likely secondary to possible PE -resolved VTE: Lovenox I spent 35 minutes [id number] with the patient on the day of discharge performing discharge exam, discussing hospital stay and discharge instructions with patient and caregivers, preparation of discharge records, prescriptions & referral forms and addressing any questions/concerns the patient had as documented above. - Vitals & Intake/Output Vital Signs: Vital Signs Temperature 97.9 F 07/10/24 16:00 Pulse Rate 80 07/10/24 16:00 Respiratory Rate 16 07/10/24 16:00 Blood Pressure 125/70 07/10/24 16:00 O2 Sat by Pulse Oximetry 97 07/10/24 16:00 Intake & Output: Intake & Output 07/08/24 07/09/24 07/10/24 07/11/24 11:59 11:59 11:59 11:59 Intake Total 720 480 Balance 720 480 Weight 98.9 kg - Lab Result Diagrams: 07/10/24 04:40 07/10/24 04:40 Lab Results-Last 24 Hrs: Lab Results-Last 24 Hours 07/09/24 07/10/24 07/10/24 Range/Units 17:46 04:40 04:40 WBC 12.5 H (4.23-9.07) x10^3/uL RBC 4.56 L (4.63-6.08) x10^6/uL Hgb 13.5 L (13.7-17.5) g/dL Hct 39.6 L (40.1-51.0) % MCV 86.8 (79.0-92.2) fL MCH 29.6 (25.7-32.2) pg MCHC 34.1 (32.3-36.5) g/dL RDW 12.0 (11.6-14.4) % Plt Count 252 (163-337) x10^3/uL MPV 10.7 (9.4-12.4) fL Sodium 136 (135-145) mmol/L Potassium 4.4 (3.5-5.1) mmol/L Chloride 101 (98-107) mmol/L Carbon Dioxide 25 (22-30) mmol/L Anion Gap 14.9 (5-15) MEQ/L BUN 20 (9-20) mg/dL Creatinine 0.88 (0.66-1.25) mg/dL Estimated GFR 100.3 ML/MIN Glucose 161 H (74-106) mg/dL Calcium 9.8 (8.4-10.2) mg/dL Troponin I < 0.012 (0.000-0.033) ng/mL Urine Color (Yellow) Urine Appearance (Clear) Urine pH (4.6-8.0) Ur Specific [place] (1.005-1.030) Urine Protein (Negative) Urine Glucose (UA) (Negative) mg/dL Urine Ketones (Negative) Urine Blood (Negative) Urine Nitrite (Negative) Urine Bilirubin (Negative) Urine Urobilinogen (0.2) mg/dL Ur Leukocyte Esterase (Negative) U Hyaline Cast (Auto) (0-2) /LPF Urine Microscopic RBC (0-5) /HPF Urine Microscopic WBC (0-5) /HPF Ur Epithelial Cells (None Seen) /HPF Urine Bacteria (None Seen) /HPF Urine Culture Reflexed (NO) 07/10/24 Range/Units 05:59 WBC (4.23-9.07) x10^3/uL RBC (4.63-6.08) x10^6/uL Hgb (13.7-17.5) g/dL Hct (40.1-51.0) % MCV (79.0-92.2) fL MCH (25.7-32.2) pg MCHC (32.3-36.5) g/dL RDW (11.6-14.4) % Plt Count (163-337) x10^3/uL MPV (9.4-12.4) fL Sodium (135-145) mmol/L Potassium (3.5-5.1) mmol/L Chloride (98-107) mmol/L Carbon Dioxide (22-30) mmol/L Anion Gap (5-15) MEQ/L BUN (9-20) mg/dL Creatinine (0.66-1.25) mg/dL Estimated GFR ML/MIN Glucose (74-106) mg/dL Calcium (8.4-10.2) mg/dL Troponin I (0.000-0.033) ng/mL Urine Color Dark Yellow (Yellow) Urine Appearance Clear (Clear) Urine pH 6.0 (4.6-8.0) Ur Specific [place] >=1.030 A (1.005-1.030) Urine Protein 30 (Negative) Urine Glucose (UA) 100 A (Negative) mg/dL Urine Ketones Trace A (Negative) Urine Blood Negative (Negative) Urine Nitrite Negative (Negative) Urine Bilirubin Small A (Negative) Urine Urobilinogen 1.0 A (0.2) mg/dL Ur Leukocyte Esterase Negative (Negative) U Hyaline Cast (Auto) 3-5 A (0-2) /LPF Urine Microscopic RBC 0-2 (0-5) /HPF Urine Microscopic WBC 0-2 (0-5) /HPF Ur Epithelial Cells None Seen (None Seen) /HPF Urine Bacteria None Seen (None Seen) /HPF Urine Culture Reflexed NO (NO) Micro Results-Entire Visit: Microbiology 07/09/24 13:48 Blood Culture - Preliminary Blood 07/09/24 13:45 Blood Culture - Preliminary Blood - Radiology Exams Ordered Rad Exams-Entire Visit: Radiology Procedures Category Date Time Status CHEST WITH CONTRAST [CT] Stat Exams 07/09/24 14:12 Completed CHEST WITH CONTRAST [CT] Stat Exams 07/10/24 14:30 Completed VENOUS UNILAT/LIMITED EXTREMIT [US] Stat Exams 07/09/24 14:12 Completed - Procedures and Test Procedures and Tests throughout Hospitalization: Therapy Orders & Screens 07/09/24 18:42 Oxygen Nasal Cannula 2 lpm Comment: Respiratory Therapy Consult ONCE Comment: Reason For Exam: 07/10/24 19:00 Respiratory Therapy Assessment DAILY Comment: Diagnosis: chest pain, shortness of breath Discharge Exam General Appearance: no apparent distress Neurologic Exam: alert, oriented x 3, cooperative Eye Exam: PERRL Ears, Nose, Throat Exam: normal ENT inspection Neck Exam: normal inspection Respiratory Exam: crackles/rales Cardiovascular Exam: regular rate/rhythm, normal heart sounds Gastrointestinal/Abdomen Exam: soft, normal bowel sounds Male Genitalia Exam: deferred Rectal Exam: deferred Back Exam: normal inspection Extremity Exam: normal inspection Skin Exam: normal color Final Diagnosis/Problem List - Final Discharge Diagnosis/Problem (1) Acute hypoxic respiratory failure Current Visit: Yes Status: Acute Code(s): J96.01 - ACUTE RESPIRATORY FAILURE WITH HYPOXIA (2) Status post right knee surgery Current Visit: Yes Status: Acute Code(s): Z98.890 - OTHER SPECIFIED POSTPROCEDURAL STATES (3) Asthma Current Visit: Yes Status: Acute Code(s): J45.909 - UNSPECIFIED ASTHMA, UNCOMPLICATED (4) Chest pain Current Visit: Yes Status: Acute Code(s): R07.9 - CHEST PAIN, UNSPECIFIED - Discharge Discharge Date: 07/10/24 Disposition: Home, Self-Care Condition: Stable Prescriptions: New Aspirin EC 325 mg [Ecotrin 325 MG] 325 mg PO DAILY 14 Days #14 tab Continue Omeprazole 20 mg PO DAILY Oxycodone HCl/Acetaminophen [Percocet 7.5-325 mg Tablet] 1 each PO QID PRN PRN PRN Reason: Pain Albuterol Sulfate Mdi [ALBUTEROL/Proair Hfa MDI] 1 puff IH Q4-6HPRN PRN PRN Reason: Shortness Of Breath Fluticasone Propion/Salmeterol [Fluticasone-Salmeterol 250-50] 1 puff IH DAILY Follow up with: SIDNEY MOLINA NP [Primary Care Provider] -
[2024-07-10] MEDS ORDERED: ENOXAPARIN SODIUM SQ SCH (22:00)
--- NOTE | 2024-07-11 05:03 | PCM.DS ---
Discharge Summary Date of Admission: 07/09/24 18:35 Date of Discharge: 07/10/24 Admitting Physician: GERALD ASENCIO MD Primary Care Provider: SIDNEY MOLINA Allergies Allergies Iodinated Contrast Media Adverse Reaction (Mild, Verified 07/10/24 16:32) Hives very few Hospital Summary - Hospital Course Hospital Course: 58-year-old male with history of asthma, presented to ED 07/09/24 with sudden onset of chest pain and dyspnea. 5 days prior to admission, patient underwent a right knee arthroscopy. He did well initially, but developed swelling and pain in the right knee on postop day 2 when he started physical therapy. The knee pain and swelling is improving, and he never had any erythema or any edema in his lower leg. However, he started developing some fevers last night. This morning, he woke with a sharp stabbing pain in his back, that radiated around to his chest. Eventually he developed dyspnea, worse with inspiration, associated with more of a pressure-like feeling. He states he does not feel like his typical asthma exacerbation, and he denies any wheezing. He denies sore throat, cough, rhinorrhea, or congestion. However, he developed progressive dyspnea and at 1 point felt lightheaded without any actual syncope. His dyspnea was only r elieved after he received Lovenox in the ED. He did not try using his inhalers because he stated it did not feel like his typical asthma symptoms. He does not wear oxygen at home. He has no personal history of prior blood clots. He has a brother who had a DVT in his leg, but he does not know if it was provoked or unprovoked. CTA 07/09/24 and CTA 07/10/24 Pulmonary embolus evaluation again limited due to suboptimal contrast opacification. Again no obvious pulmonary embolus. Patient received IP treatment with lovenox. oN 07/11/24 Patient had sudden onset of right flank pain, shortness of breath, tachycardia, and hypertension. EKG, troponin series, ddimer, and CT CAP ordered. CT chest with new findings since CT Chest performed the day prior showing new cardiomegaly, pulmonary edema, and tiny bilateral effusion. Lasix, solumedrol, and duoneb given. Transfer requested to higher level of care with cardiology. -Dr. Fischer accepting. Patient to transfer by air. Bilateral venous doppler negative for DVT. Discharge Note Follow Up: PCP/ ortho Latest Assessment & Plan (1) Acute hypoxic respiratory failure Current Visit: Yes Status: Acute Assessment & Plan: -Symptomatology consistent with PE - acute onset of dyspnea and chest pain, worse with inspiration, after recent knee surgery. Patient was not taking any aspirin or anticoagulation after his surgery as it was only an arthroscopy. -CTA chest reviewed -no obvious PE -Doppler ultrasound of the leg is negative for DVT Therapeutic lovenox -Eliquis PE dosing if PE present on repeat CT -Supplemental oxygen with spo2 goal >92% - RA at baseline and currently Code(s): J96.01 - ACUTE RESPIRATORY FAILURE WITH HYPOXIA (2) Status post right knee surgery Current Visit: Yes Status: Acute Assessment & Plan: -noted, continue home pain control regimen Code(s): Z98.890 - OTHER SPECIFIED POSTPROCEDURAL STATES (3) Asthma Current Visit: Yes Status: Acute Assessment & Plan: -not in exacerbation Continue home fluticasone/salmeterol Continue home PRN albuterol Code(s): J45.909 - UNSPECIFIED ASTHMA, UNCOMPLICATED (4) Chest pain Current Visit: Yes Status: Acute Assessment & Plan: -Trops negative x 2 -EKG with sinus tach- no acute ischemia -repeat EKG in the a.m. -Most likely secondary to possible PE -resolved VTE: Lovenox I spent 35 minutes [id number] with the patient on the day of discharge performing discharge exam, discussing hospital stay and discharge instructions with patient and caregivers, preparation of discharge records, prescriptions & referral forms and addressing any questions/concerns the patient had as documented above. - Vitals & Intake/Output Vital Signs: Vital Signs Temperature 97.5 F 07/11/24 04:00 Pulse Rate 85 07/11/24 04:00 Respiratory Rate 18 07/11/24 04:00 Blood Pressure 136/85 07/11/24 04:00 O2 Sat by Pulse Oximetry 99 07/11/24 04:00 Intake & Output: Intake & Output 07/08/24 07/09/24 07/10/24 07/11/24 11:59 11:59 11:59 11:59 Intake Total 720 480 Balance 720 480 Weight 98.9 kg - Lab Result Diagrams: 07/11/24 05:12 07/11/24 05:12 Lab Results-Last 24 Hrs: Lab Results-Last 24 Hours 07/10/24 07/10/24 07/10/24 Range/Units 04:40 04:40 05:59 WBC 12.5 H (4.23-9.07) x10^3/uL RBC 4.56 L (4.63-6.08) x10^6/uL Hgb 13.5 L (13.7-17.5) g/dL Hct 39.6 L (40.1-51.0) % MCV 86.8 (79.0-92.2) fL MCH 29.6 (25.7-32.2) pg MCHC 34.1 (32.3-36.5) g/dL RDW 12.0 (11.6-14.4) % Plt Count 252 (163-337) x10^3/uL MPV 10.7 (9.4-12.4) fL Sodium 136 (135-145) mmol/L Potassium 4.4 (3.5-5.1) mmol/L Chloride 101 (98-107) mmol/L Carbon Dioxide 25 (22-30) mmol/L Anion Gap 14.9 (5-15) MEQ/L BUN 20 (9-20) mg/dL Creatinine 0.88 (0.66-1.25) mg/dL Estimated GFR 100.3 ML/MIN Glucose 161 H (74-106) mg/dL Calcium 9.8 (8.4-10.2) mg/dL Urine Color Dark Yellow (Yellow) Urine Appearance Clear (Clear) Urine pH 6.0 (4.6-8.0) Ur Specific [place] >=1.030 A (1.005-1.030) Urine Protein 30 (Negative) Urine Glucose (UA) 100 A (Negative) mg/dL Urine Ketones Trace A (Negative) Urine Blood Negative (Negative) Urine Nitrite Negative (Negative) Urine Bilirubin Small A (Negative) Urine Urobilinogen 1.0 A (0.2) mg/dL Ur Leukocyte Esterase Negative (Negative) U Hyaline Cast (Auto) 3-5 A (0-2) /LPF Urine Microscopic RBC 0-2 (0-5) /HPF Urine Microscopic WBC 0-2 (0-5) /HPF Ur Epithelial Cells None Seen (None Seen) /HPF Urine Bacteria None Seen (None Seen) /HPF Urine Culture Reflexed NO (NO) Micro Results-Entire Visit: Microbiology 07/09/24 13:48 Blood Culture - Preliminary Blood 07/09/24 13:45 Blood Culture - Preliminary Blood - Radiology Exams Ordered Rad Exams-Entire Visit: Radiology Procedures Category Date Time Status CHEST WITH CONTRAST [CT] Stat Exams 07/09/24 14:12 Completed CHEST WITH CONTRAST [CT] Stat Exams 07/10/24 14:30 Completed VENOUS UNILAT/LIMITED EXTREMIT [US] Stat Exams 07/09/24 14:12 Completed - Procedures and Test Procedures and Tests throughout Hospitalization: Therapy Orders & Screens 07/09/24 18:42 Oxygen Nasal Cannula 2 lpm Comment: Respiratory Therapy Consult ONCE Comment: Reason For Exam: 07/10/24 19:00 Respiratory Therapy Assessment DAILY Comment: Diagnosis: chest pain, shortness of breath 07/10/24 19:07 Oxygen Nasal Cannula 2 lpm Comment: Diagnosis: chest pain, shortness of breath Discharge Exam General Appearance: moderate distress Neurologic Exam: alert, oriented x 3, cooperative Eye Exam: PERRL Ears, Nose, Throat Exam: normal ENT inspection Neck Exam: normal inspection Respiratory Exam: diminished breath sounds, wheezing Cardiovascular Exam: tachycardia Gastrointestinal/Abdomen Exam: soft, normal bowel sounds Male Genitalia Exam: deferred Rectal Exam: deferred Back Exam: normal inspection Extremity Exam: normal inspection Skin Exam: normal color Final Diagnosis/Problem List - Final Discharge Diagnosis/Problem (1) Acute hypoxic respiratory failure Current Visit: Yes Status: Acute Code(s): J96.01 - ACUTE RESPIRATORY FAILURE WITH HYPOXIA (2) Status post right knee surgery Current Visit: Yes Status: Acute Code(s): Z98.890 - OTHER SPECIFIED POSTPROCEDURAL STATES (3) Asthma Current Visit: Yes Status: Acute Code(s): J45.909 - UNSPECIFIED ASTHMA, UNCOMPLICATED (4) Chest pain Current Visit: Yes Status: Acute Code(s): R07.9 - CHEST PAIN, UNSPECIFIED - Discharge Discharge Date: 07/11/24 Disposition: Home, Self-Care Condition: Stable Prescriptions: New Enoxaparin Sodium [Enoxaparin Sodium] 100 mg SQ Q12HT Continue Omeprazole 20 mg PO DAILY Oxycodone HCl/Acetaminophen [Percocet 7.5-325 mg Tablet] 1 each PO QID PRN PRN PRN Reason: Pain Albuterol Sulfate Mdi [ALBUTEROL/Proair Hfa MDI] 1 - 2 puff IH Q4-6HPRN PRN PRN Reason: Shortness Of Breath Fluticasone Propion/Salmeterol [Fluticasone-Salmeterol 250-50] 1 puff IH BID Follow up with: SIDNEY MOLINA NP [Primary Care Provider] - 07/17/24 1:15 pm
[2024-07-11 05:27] LABS: Absolute Neutrophil Ct (ANC) 8.27 x10^3/uL (1.78-5.38); BASOPHIL % 0.1 % (0.2-1.2); Basophil (Absolute #) 0.01 x10^3/uL (0.01-0.08); Eosinophil % 0.6 % (0.8-7.0); Eosinophil (Absolute #) 0.06 x10^3/uL (0.04-0.54); Hematocrit 39.6 % (40.1-51.0); Hemoglobin 13.1 g/dL (13.7-17.5); IMMATURE GRAN # 0.07 x10^3u/L (0.001-0.031); IMMATURE GRAN % 0.6 % (0.001-0.429); Lymphocyte (Absolute #) 1.58 x10^3/uL (1.32-3.57); Lymphocytes % 14.5 % (21.8-53.1); Mean Cell Volume 89.8 fL (79.0-92.2); Mean Corpuscular Hemoglobin 29.7 pg (25.7-32.2); Mean Corpuscular Hgb Concent. 33.1 g/dL (32.3-36.5); Monocytes % 8.3 % (5.3-12.2); Neutrophil % 75.9 % (34.0-67.9); Platelet Count 260 x10^3/uL (163-337); Red Blood Count 4.41 x10^6/uL (4.63-6.08); Red Cell Distribution Width 12.2 % (11.6-14.4); White Blood Count 10.9 x10^3/uL (4.23-9.07)
[2024-07-11 05:46] LABS: ALBUMIN 4.4 g/dL (3.5-5.0); ANION GAP 13.5 MEQ/L (5-15); BILIRUBIN,TOTAL 0.6 mg/dL (0.2-1.3); Calcium 9.5 mg/dL (8.4-10.2); Creatinine 1 1.02 mg/dL (0.66-1.25); EST GLOMERULAR FILTRATION RATE 85.7 ML/MIN; Total Protein 7.5 g/dL (6.3-8.2)
[2024-07-11] MEDS: Hydromorphone 1 mg/ml Injection IV PRN (08:54)
[2024-07-11 09:13] LABS: A-aADO2 77; ABG HEMOGLOBIN 13.7; ABG POTASSIUM 3.9 (3.5-5.1); ARTERIAL BLD GAS O2 SATURATION 98.2 % (95-100); ARTERIAL BLOOD GAS BASE EXCESS 8.6 (-2.0-2.0); ARTERIAL BLOOD GAS FIO2 28 %; ARTERIAL BLOOD GAS PCO2 37 mmHg (35-45); ARTERIAL BLOOD GAS PO2 76 mmHg (75-100); ARTERIAL BLOOD GAS pH 7.54 (7.35-7.45); CARBOXYHEMOGLOBIN 4.5 % THgb (0.0-6.9); HCO3- 31.6 (22-28); HGB O2 SAT 92.8 g/dF (94-100); Methhemoglobin 1.1 % (1.4-1.5)
[2024-07-11 09:14] LABS: ABG SITE LEFT RADIAL; ALLEN TEST OK? yes
[2024-07-11] MEDS ORDERED: DUONEB 0.5-3 MG/3 ml Neb IH ONE (09:28)
[2024-07-11] MEDS: DUONEB 0.5-3 MG/3 ml Neb IH ONE (09:33)
--- NOTE | 2024-07-11 10:07 | XRAY ---
Indication: Short of breath. Pain. Multiple contiguous axial images obtained through the chest without contrast. Comparison: July 09 and July 10, 2024. Study degraded by diffuse respiration artifact. New cardiomegaly. Aorta is again normal in course and caliber. Stable tiny mediastinal and right hilar calcified nodes. No pathologic mediastinal lymphadenopathy. Slightly enlarging small hiatal hernia with now fluid leveling in mid to distal esophagus favoring GERD. Lungs demonstrates new diffuse pulmonary edema and tiny bilateral effusions, right greater than left. Also new bilateral dependent atelectasis. Stable biapical supposedly changes and tiny posterior left lung base calcified granuloma. Bony thorax intact. CT abdomen/pelvis reported separately. Impression: 1. Since CT exams yesterday, there is new cardiomegaly, pulmonary edema, and tiny bilateral effusions. Rule out cardiac decompensation/CHF versus fluid overload. 2. Enlarging small hiatal hernia with new features for GERD. Aspiration not completely excluded.
--- NOTE | 2024-07-11 10:11 | XRAY ---
Indication: Short of breath. Pain. Multiple contiguous axial images obtained through the abdomen and pelvis without contrast. Comparison: None CT chest reported separately. Mild diffuse respiration artifact and beam artifact from patient's arms. Noncontrasted stomach and bowel loops appear nonobstructed. No free fluid/air. Contrast in system/urinary bladder from CT chest PE exam one day earlier. Remaining liver, gallbladder, pancreas, spleen, adrenal glands, kidneys, ureters, and bladder are unremarkable. Minimal aortoiliac calcifications without AAA. Osseous structures intact with minimal degenerative changes throughout spine. No ventral inguinal hernias. Impression: 1. Respiration and beam artifact. 2. Contrast in system from CT chest PE exam one day earlier. 3. Chronic findings including arteriosclerotic disease and degenerative spondylosis. 4. Remaining CT abdomen/pelvis without contrast exam is negative.
--- NOTE | 2024-07-11 10:45 | XRAY ---
Indication: Short of breath. Pain. Two-dimensional sonogram and color Doppler imaging major venous vessels (right leg performed. Comparison: Right leg venous sonogram July 09, 2024. No thrombus seen in the examined deep venous vessels left and right leg including greater saphenous vein. Veins demonstrate normal compressibility. Venous waveforms are normal with and without augmentation. Posterior right knee again demonstrates 4.8 x 2.1 x 1.0 cm Knight's cyst. Impression: Right leg continues to be negative for DVT compared to 2 days ago with again with incidental Knight's cyst. Left leg negative for DVT.
[2024-07-11] MEDS: Lasix 40 MG/4 ML IV ONE (10:54)
[2024-07-11] MEDS: ENOXAPARIN SODIUM SQ SCH (10:57)
[2024-07-11] MEDS: Ativan 2 MG/1 ML VIAL IV ONE (11:25)
[2024-07-11] MEDS: solu-MEDROL 40 MG, Sterile H2O 10 ml 1 ML IV ONE (11:25)
[2024-07-11 11:43] VITALS: BP 135/85; PULSE 120; RESP 16; TEMP 97.6; O2SAT 97
== END 2024-07-11 13:08 | disposition short-term general hospital (02) ==
LOC: ED 13:14 → MED SURG 18:35
PROVIDERS: ADMIT Internal Medicine; ATTEND Internal Medicine
DX: J96.01 Acute respiratory failure with hypoxia (principal); Z98.890 Other specified postprocedural states; J45.909 Unspecified asthma, uncomplicated; R07.9 Chest pain, unspecified; R00.0 Tachycardia, unspecified; Z79.899 Other long term (current) drug therapy
CPT/HCPCS: 0241U; 36415; 36600; 71250; 71260; 74176; 80048; 80053; 81001; 82375; 82803; 83605; 83735; 83880; 84484; 85025; 85027; 85379; 87040; 93005; 93041; 93970; 93971; 94640; 94760; 96372; 96374; 96375; 99285; Q3014; 93268; J1171; J1200; J1650; J1940; J2060; J2405; J2919; A9270-GY; G0378